=== PATIENT | male | born 1960 | race Caucasian/White ===

== ENCOUNTER 2016-08-31 17:40 | Inpatient (IN) | payer OTHER ==
[~2016-08-31] VITALS: Ht 180.3 cm; Wt 128.0 kg
[2016-08-31 18:55] VITALS: BP 141/76
[2016-08-31] MEDS: IV NORMAL SALINE 1000ML BAG 1,000 ML IV SCH (22:02)
[2016-08-31] MEDS: MORPHINE SULFATE 2 MG/ML DISP.SYRIN. IV PRN (22:03)
[2016-08-31] MEDS ORDERED: ATOR20TA58 PO (22:24)
[2016-08-31] MEDS ORDERED: WARF4TAB68 PO (22:24)
[2016-08-31] MEDS ORDERED: FENO160T PO (22:24)
[2016-08-31] MEDS ORDERED: TAMS0.4C97 PO (22:24)
[2016-08-31] MEDS ORDERED: VORT20TA PO (22:24)
[2016-08-31] MEDS ORDERED: PROP40TA PO (22:24)
[2016-08-31 23:01] VITALS: BP 106/68
[2016-08-31] MEDS: ATORVASTATIN CALCIUM 20 MG TABLET PO SCH (23:11)
[2016-08-31] MEDS: KETOROLAC TROMETHAMINE 30 MG/ML INJ. IV PRN (23:12)
[2016-08-31] MEDS: fentaNYL PF VIAL 100 MCG/2 ML VIAL IV PRN (23:12)
[2016-09-01 02:51] VITALS: BP 113/69
[2016-09-01] MEDS: KETOROLAC TROMETHAMINE 30 MG/ML INJ. IV PRN ×3 (05:21→17:48)
[2016-09-01] MEDS: fentaNYL PF VIAL 100 MCG/2 ML VIAL IV PRN ×4 (05:22→21:52)
[2016-09-01 07:00] VITALS: BP 137/86
[2016-09-01 08:05] LABS: INR 1.8 (0.8-1.1); PROTHROMBIN TIME PATIENT 20.1 SEC (11.7-14.0)
[2016-09-01] MEDS: NON FORMULARY ITEM (Vortioxetine Hydrobromide (Trintellix) 20 MG) PO SCH (09:00)
[2016-09-01 11:00] VITALS: BP 133/75
--- NOTE | 2016-09-01 11:08 | HP ---
ADMIT DATE: 09/01/2016 CHIEF COMPLAINT: Left flank pain. HISTORY OF PRESENT ILLNESS: The patient is a 56-year-old gentleman with longstanding history of recurrent kidney stones who presented with left flank pain. On CT that had been obtained when he visited the Emergency Room at [facility] 3 days ago, a stone was noted. It was thought that he may be able to pass that himself and was given pain medications for home. However, following day, yesterday, pain recurred fairly severely, and he re-presented to [facility] ER and was promptly transferred to [facility] to see his urologist, Dr. Rod. He relates that he has had kidney stones since age 29, typically on the right, although he had a procedure done at in 2008 to relieve the stenosis on his right side. Since then, he has had two stones on the left only. Of note, the patient has a personal as well as extensive family history of DVTs/PE and is on chronic Coumadin. PAST MEDICAL HISTORY: Renal stones as above, PE in 2005 and 2012, on Coumadin; and hyperlipidemia. FAMILY HISTORY: No kidney stones known. Multiple family members including siblings and father with DVT and PE. SOCIAL HISTORY: No toxic habits. ALLERGIES: CODEINE. MEDICATIONS: MAR reconciled with home medications. REVIEW OF SYSTEMS: Positive for left flank pain, currently well controlled with medications. Rest of organ system review is negative. PHYSICAL EXAMINATION: VITAL SIGNS: From today show a blood pressure of 137/86, heart rate of 76, and respiratory rate at 20. He is afebrile. GENERAL: This is a morbidly obese gentleman, alert and oriented, in no acute distress. HEENT: Shows no scleral icterus. NECK: Supple and thick. LUNGS: Clear to auscultation bilaterally. HEART: Regular rate and rhythm. ABDOMEN: Has positive bowel sounds, tenderness to palpation in the left upper quadrant and left flank. EXTREMITIES: Show no edema, no clubbing, no cyanosis. SKIN: Warm, soft, and dry without any rash. LABORATORY DATA: From [facility] were reviewed. ASSESSMENT AND PLAN: The patient is a 56-year-old gentleman with longstanding history of renal stones, now presenting with left flank pain and radiographically demonstrated a kidney stone. This has not passed despite treatment and pain medication over the past 48 hours. Urology has been consulted. Dr. Rod is his regular urologist. Anticipate a cystoscopy with potential stent placement. The patient does have a history of DVT, PE, and is on permanent anticoagulation. His INR currently is 1.8. This may have to be reversed with FFP if the procedure is planned for today. Otherwise, we will hold Coumadin for the time being. Pain control is adequate at this time. Continue with IV fentanyl and ketorolac. The patient relates that he has a diagnosis of "prediabetes." He had an appointment with his primary care physician, Dr. Puente, today. We will leave further workup to Dr. Puente. JULIEN CLARKE MD DR: TRINY/nts JOB#: [id number] / [id number] CARLI Quintana MD MTDD
[2016-09-01] MEDS: IV NORMAL SALINE 1000ML BAG 1,000 ML IV SCH ×2 (11:16→21:40)
[2016-09-01] MEDS: FENOFIBRATE,MICRONIZED 134 MG CAPSULE PO SCH (12:52)
[2016-09-01] MEDS: TAMSULOSIN 0.4 MG CAP.ER.24H. PO SCH (12:52)
[2016-09-01] MEDS: PROPRANOLOL ER 60 MG CAP.SA.24H. PO SCH (12:53)
[2016-09-01] MEDS: MORPHINE SULFATE 2 MG/ML DISP.SYRIN. IV PRN (14:21)
[2016-09-01 15:00] VITALS: BP 136/80
[2016-09-01] MEDS ORDERED: WARFARIN 4 MG TABLET. PO SCH (16:00)
--- NOTE | 2016-09-01 17:41 | ACF ---
Admission Forms Criteria RENAL COLIC AND KIDNEY STONES Clinical Indications for Admission to Inpatient Care ( Place 'X' for any and all applicable criteria): Admission is indicated for ANY ONE of the following (1)(2)(3)(4): [X ]I. Inpatient admission required rather than observation care (Also use Renal Colic and Kidney Stones: Observation Care Criteria as appropriate) because of ANY ONE of the following: [X ]a) Severe pain requiring acute inpatient management [ ]b) Urinary tract infection identified [ ]c) Vomiting that is severe or persistent [ ]d) IV fluid required rather than oral rehydration to replace significant ongoing (eg, for greater than 24 hours) losses (greater than 200 mL/hr or 3 L/m2 per day) [ ]e) Percutaneous or open drainage (eg, abscess, biliary tract) procedures [ ]f) Other condition, treatment or monitoring requiring inpatient admission [ ]II. Impending acute renal failure [ ]III. Bilateral obstruction [ ]IV. Single kidney with obstruction [ ]V. Transplanted kidney with obstruction [ ]. Possible open surgical procedure needed (eg, pyonephrosis, stone removal not amendable to other means) [ ]VII. Hemodynamic instability Extended stay beyond goal length of stay may be needed for(2)(3)(31): [ ]a) Failed initial stone removal (32) [ ]b) Pyonephrosis [ ]c) Obstructive uropathy with urinary tract infection [ ]d) Procedure complications [ ]e) Comorbidities (22) The original [facility] content created by [employer] has been revised. The portions of the content which have been revised are identified through the use of italic text or in bold, and [facility] has neither reviewed nor approved the modified material. All other unmodified content is copyright [facility]. Please see references footnoted in the original [facility] edition 2016 Admission Criteria Met?: Yes RONAK GOMEZ Sep 01, 2016 17:41
[2016-09-01 19:26] VITALS: BP 140/71
[2016-09-01] MEDS: ATORVASTATIN CALCIUM 20 MG TABLET PO SCH (20:57)
[2016-09-01 23:12] VITALS: BP 119/72
[2016-09-02] VITALS (12 sets, daily range): BP systolic 130–181; BP diastolic 74–103
--- NOTE | 2016-09-02 02:44 | CONS ---
DATE OF CONSULTATION: CHIEF COMPLAINT: Left flank pain, distal left ureteral calculus (5 mm). HISTORY OF PRESENT ILLNESS: A 56-year-old male with a history of recurrent kidney stones. He evidently started to have flank pain earlier in the week. He presented to [facility]. He was sent home with pain medications and see if he can pass the stone spontaneously. His pain recurred. He presented to [facility] and [facility]. The patient has had multiple kidney stones in the past. PAST MEDICAL HISTORY: Significant for kidney stones, pulmonary embolus in 2005 and 2012. He is on chronic anticoagulation with Coumadin. He also has a history of hyperlipidemia. SOCIAL HISTORY: Unremarkable. He denies smoking or alcohol use. ALLERGIES: HE STATES HE IS ALLERGIC TO CODEINE. MEDICATIONS: Refer to chart. REVIEW OF SYSTEMS: A 14-point review of systems performed, most significant as in HPI. PHYSICAL EXAMINATION: GENERAL DESCRIPTION: A 56-year-old male, moderately obese, resting comfortably with the benefit of IV hydration and analgesia. ABDOMEN: Soft, nontender. Negative for guarding or rigidity. No rebound tenderness. He has some mild left flank discomfort to palpation, right flank was normal. GENITOURINARY: No suprapubic tenderness. RECTAL: Not performed. MUSCULOSKELETAL: Negative for cyanosis or edema. LABORATORY DATA: The patient's PT is 20.1. His INR is 1.8. X-RAY STUDIES: Noncontrast CT scan performed at [facility] revealed a 5-mm calculus in the left ureter, 3-4 cm above the left ureterovesical junction. IMPRESSION: 1. Left flank pain. 2. A 5-mm distal left ureteral calculus. 3. History of pulmonary embolus. 4. Chronically anticoagulated. PLAN: I discussed the situation with the patient and also the hospitalist. We are going to check his PT and INR tomorrow and is still elevated. We will reverse his anticoagulation and schedule him for later in the afternoon for ureteroscopy, holmium laser lithotripsy, stone extraction, has explained to the patient, he appears to understand and is agreeable. RISHABH CLEANING DO DR: BRIAN/dev JOB#: [id number] / [id number]
[2016-09-02] MEDS ORDERED: IOHEXOL 300 MG/ML 50 ML VIAL. ONE (07:15)
[2016-09-02] MEDS: KETOROLAC TROMETHAMINE 30 MG/ML INJ. IV PRN (07:49)
--- NOTE | 2016-09-02 08:37 | RAD ---
Indication left ureteral calculus. Supine films of the abdomen were obtained. No prior imaging is available. The lung bases are clear. The abdominal gas pattern is normal. There are left renal calculi. There is a 3 to 4 mm density over the left sacrum which could represent a calculus in the distal ureter. Clinical correlation and correlation with any previous imaging studies advised. IMPRESSION: Left renal calculi. Density over the left sacrum may represent a calculus in the distal left ureter
[2016-09-02] MEDS: IV NORMAL SALINE 1000ML BAG 1,000 ML IV SCH ×2 (08:46→16:03)
[2016-09-02] MEDS: FENOFIBRATE,MICRONIZED 134 MG CAPSULE PO SCH (08:47)
[2016-09-02] MEDS: NON FORMULARY ITEM (Vortioxetine Hydrobromide (Trintellix) 20 MG) PO SCH (08:47)
[2016-09-02] MEDS: PROPRANOLOL ER 60 MG CAP.SA.24H. PO SCH (08:47)
[2016-09-02] MEDS: TAMSULOSIN 0.4 MG CAP.ER.24H. PO SCH (08:47)
[2016-09-02 09:25] LABS: INR 1.5 (0.8-1.1); PROTHROMBIN TIME PATIENT 17.2 SEC (11.7-14.0)
[2016-09-02] MEDS: fentaNYL PF VIAL 100 MCG/2 ML VIAL IV PRN (09:26)
--- NOTE | 2016-09-02 10:24 | PDOC ---
PROGRESS NOTES Chief Complaint Chief Complaint L urolithiasis ASSESSMENT AND PLAN: 1. L renal stone: planned cysto today 2. OAC: chronic warferin for DVT/PE, on hold for past 2 days. INR 1.5 today , adequate for intervention 3. DVT/PE: restart warferin post procedure, goal INR2-3. bridge with lovenox (pt knows regimen, can self administer) 4. Pain control: adequate on current toradol, fentanyl PRN 5. Dispo: anticipate D/C later today unless unexpected findings with procedure ) Vitals Vitals Vital Signs Date Time Temp Pulse Resp B/P (MAP) Pulse Ox O2 Delivery O2 Flow Rate FiO2 09/02/16 09:26 Room Air 09/02/16 08:47 72 133/74 09/02/16 07:00 97.9 22 96 97.9 Physical Exam General: Alert, Oriented X3, Cooperative Heart: Regular rate Lungs: Clear Abdomen: Normal bowel sounds, Other (LUQ pain/flank pain) Extremities: No edema Skin: No rashes Labs LABS Laboratory Tests Test 09/02/16 09:05 Prothrombin Time 17.2 SEC (11.7-14.0) Prothromb Time International Ratio 1.5 (0.8-1.1) JULIEN CLARKE MD Sep 02, 2016 10:24
[2016-09-02] MEDS ORDERED: OXYC-323 PO (10:32)
[2016-09-02] MEDS ORDERED: CEFTRIAXONE 1 GM IV ONE (12:00)
[2016-09-02] MEDS ORDERED: [UNRECOGNIZED DRUG - OTHER] IV ONE (12:00)
[2016-09-02] MEDS ORDERED: fentaNYL PF VIAL 100 MCG/2 ML VIAL ONE (12:38)
[2016-09-02] MEDS ORDERED: LIDOCAINE 2% PF Vial for OR 5 ML VIAL. ONE (12:39)
[2016-09-02] MEDS ORDERED: MIDAZOLAM HCL/PF 2 MG/2 ML VIAL. ONE (12:41)
[2016-09-02] MEDS ORDERED: ONDANSETRON PF 4 MG/2 ML VIAL. ONE (12:44)
[2016-09-02] MEDS ORDERED: PROPOFOL 20 ML IV ONE (12:44)
[2016-09-02] MEDS ORDERED: DEXAMETHASONE SOD PHOS 20 MG/5 ML VIAL. ONE (12:45)
[2016-09-02] MEDS ORDERED: FUROSEMIDE 40 MG/4 ML VIAL. ONE (13:30)
--- NOTE | 2016-09-02 14:17 | PDOC ---
BRIEF OPERATIVE NOTE Date: Sep 02, 2016 Pre-Op Diagnosis left ureteral calculus Post-Op Diagnosis Impacted left ureteral calculus Procedure Performed Cystoscopy left retrograde pyelogram, rigid ureteroscopy, holmium laser lithotripsy ureteral stent placement (4.8fr by 26cm) Surgeon Viola Anesthesia Type: General Specimens Obtained none Findings impacted left ureteral calculus which was fragmented with Holmium laser Complications None Additional Remarks Tolerated well RISHABH CLEANING DO Sep 02, 2016 14:17
[2016-09-02] MEDS ORDERED: IV RINGERS,LACTATED 1000ML 1,000 ML IV SCH (14:19)
[2016-09-02] MEDS ORDERED: fentaNYL PF VIAL 100 MCG/2 ML VIAL IV PRN ×2 (14:30)
[2016-09-02] MEDS ORDERED: LIDOCAINE 1% 1 ML SYRINGE. ID PRN (14:30)
[2016-09-02] MEDS ORDERED: MORPHINE SULFATE 2 MG/ML DISP.SYRIN. IV PRN (14:30)
[2016-09-02] MEDS ORDERED: HYDROmorphone 2 MG/ML VIAL IV PRN (14:30)
[2016-09-02] MEDS ORDERED: PROCHLORPERAZINE 10 MG/2 ML VIAL. IV PRN (14:30)
[2016-09-02] MEDS ORDERED: ONDANSETRON PF 4 MG/2 ML VIAL. IV PRN (14:30)
[2016-09-02] MEDS: ATORVASTATIN CALCIUM 20 MG TABLET PO SCH (20:49)
[2016-09-03 03:00] VITALS: BP 131/73
[2016-09-03] MEDS: IV NORMAL SALINE 1000ML BAG 1,000 ML IV SCH (05:19)
[2016-09-03 07:00] VITALS: BP 145/86
[2016-09-03] MEDS: TAMSULOSIN 0.4 MG CAP.ER.24H. PO SCH (08:41)
[2016-09-03] MEDS: FENOFIBRATE,MICRONIZED 134 MG CAPSULE PO SCH (08:41)
[2016-09-03] MEDS: PROPRANOLOL ER 60 MG CAP.SA.24H. PO SCH (08:42)
[2016-09-03] MEDS: NON FORMULARY ITEM (Vortioxetine Hydrobromide (Trintellix) 20 MG) PO SCH (08:43)
[2016-09-03] MEDS ORDERED: ENOX40DI SQ (10:26)
--- NOTE | 2016-09-03 10:38 | OP ---
DATE OF SURGERY: 09/02/2016 PREOPERATIVE DIAGNOSIS: Left flank pain, left ureteral calculus. POSTOPERATIVE DIAGNOSIS: Impacted left ureteral calculus. PROCEDURE: Cystoscopy, left retrograde pyelogram, rigid ureteroscopy with holmium laser lithotripsy, placement of indwelling left ureteral stent (4.8 Palestinian x 26 cm). SURGEON: Rishabh Cleaning DO. ANESTHESIA: General. INDICATIONS AND JUDGMENT: This is a 56-year-old male with a history of kidney stones. He is admitted to the hospital with acute left flank pain. He evidently had been experiencing flank pain for over a week. He was on medical expulsive therapy, which did not work and therefore, he was admitted to the [facility]. The CT scan had revealed what appeared to be a 5 mm calculus in the left ureter at about 5 cm above the left ureterovesical junction. IV hydration and analgesia as well as Flomax, the patient did not pass the stone spontaneously; therefore, it was felt that he should undergo ureteroscopy, holmium laser lithotripsy. The procedure was explained to the patient. He appeared to understand and was agreeable. DESCRIPTION OF PROCEDURE: The patient was preloaded with IV antibiotics. He was then taken to the operating room and placed on the operating room table in supine position, given a general anesthetic and then placed in a dorsolithotomy position using Bc stirrups since we do not have a cystoscopy table. A C-arm was moved into position. Rigid cystoscopy was performed. The urethra was normal in course and caliber. The prostate was unremarkable. Scope was advanced into the bladder. The bladder was examined. There were no calculi within the bladder. I then cannulated the left ureteral orifice with an 8-Palestinian cone tip ureteral catheter. Contrast was given and the patient was found to have high-grade obstruction at the level of the stone and no contrast was able to pass the stone. I then attempted to pass a 0.035 Glidewire to pass the stone and this was not successful. I also attempted a curved Glidewire and once again I could not get anything pass the stone, it was completely impacted. I then balloon dilated the distal left ureter. I then advanced a Sanchez rigid ureteroscope to the level of the stone. I then used a holmium laser fiber and placed it on the stone and was able to fragment it in 2 or 3 pieces. These pieces then immediately migrated up into the more proximal ureter. I also saw there was a small false channel at the 6 o'clock position from the laser. Therefore, I decided not to change the stone fragments and rather it placed indwelling left ureteral stent. A 4.8-Palestinian x 26-cm double-J ureteral stent was placed over the Glidewire up into the left renal pelvis. Positioning appeared to be satisfactory; therefore, the instruments removed leaving the stent in place. The patient was sent to recovery room in satisfactory condition. Plans will be to send the patient home with the stent ____ the swelling or edema resolved ____ ureter. I think when we remove his left ureteral stent then small stone fragments should pass spontaneously. RISHABH CLEANING DO DR: BRIAN/dev JOB#: [id number] / [id number]
[2016-09-03 11:00] VITALS: BP 146/95
--- NOTE | 2016-09-04 01:08 | DS ---
DATE OF DISCHARGE: 09/03/2016 DISCHARGE DIAGNOSES: 1. Cystoscopy, left retrograde pyelogram with rigid ureteroscopy with laser lithotripsy and ureteral stent placement. 2. Oral anticoagulation on chronic warfarin for deep vein thrombosis, pulmonary embolism. He was on hold for 2 days. His INR is 1.5. Received FFP during hospitalization, currently not therapeutic. 3. History of deep venous thrombosis and pulmonary embolism, currently on Lovenox. 4. Pain control. BRIEF HOSPITAL COURSE: A 56-year-old male patient admitted to the hospital for left flank pain. He has a prior history of longstanding renal stones. He was evaluated by Dr. Rod and during the hospitalization he had a cystoscopy with ureteral stent placement and lithotripsy. Post-procedure, the patient's symptoms improved and currently he is symptoms free. During hospitalization, he received FFP 2 units because his INR is not amenable for procedure. The patient was on oral anticoagulation with warfarin for DVT and PE. Post procedure, the patient was placed on Lovenox and recommended to continue both Lovenox and warfarin for next [address] Puente on Monday, so that he can check INR and adjust the doses of Coumadin and Lovenox as per the INR levels. The patient has been given clear instructions how to take Lovenox and warfarin and bridging modalities and when to stop. He and his verbalized understanding of the instructions. DISCHARGE EXAMINATION: GENERAL: Alert, oriented x 3. HEART: S1, S2 present. CHEST: Anterior chest clear. ABDOMEN: Soft, nontender, no organomegaly. EXTREMITIES: No edema. DISCHARGE DISPOSITION: Home. DISCHARGE FOLLOWUP: With Dr. Puente on Monday. I did personally call Dr. Puente and notified about the patient's discharge planning and current management plans. He agreed to see him on Monday. The patient needs to call him on Monday. Total time spent is 45 minutes for patient education, counseling, and coordination of care. ANGELO MARROQUIN MD DR: PARVEEN/dev JOB#: [id number] / [id number] MENA
== END 2016-09-03 11:10 | disposition home or self-care (01) | DRG 694 ==
LOC: 4 NORTH 19:25
PROVIDERS: ADMIT Internal Medicine; ATTEND Internal Medicine
PROC: 30233K1 Transfusion of Nonautologous Frozen Plasma into Peripheral Vein, Percutaneous Approach (ICD-10-PCS; 2016-09-02)
PROC: BT1F1ZZ Fluoroscopy of Left Kidney, Ureter and Bladder using Low Osmolar Contrast (ICD-10-PCS; 2016-09-02)
PROC: 0T778DZ Dilation of Left Ureter with Intraluminal Device, Via Natural or Artificial Opening Endoscopic (ICD-10-PCS; 2016-09-02)
PROC: 0TF68ZZ Fragmentation in Right Ureter, Via Natural or Artificial Opening Endoscopic (ICD-10-PCS; 2016-09-02)
PROC: 30233L1 Transfusion of Nonautologous Fresh Plasma into Peripheral Vein, Percutaneous Approach (ICD-10-PCS; principal; 2016-09-02 12:30)
DX: N20.2 Calculus of kidney with calculus of ureter (principal); E66.01 Morbid (severe) obesity due to excess calories; E78.5 Hyperlipidemia, unspecified; Z79.01 Long term (current) use of anticoagulants; Z86.711 Personal history of pulmonary embolism; Z86.718 Personal history of other venous thrombosis and embolism; Z87.442 Personal history of urinary calculi; Z88.5 Allergy status to narcotic agent; Z68.39 Body mass index [BMI] 39.0-39.9, adult
CPT/HCPCS: 36415; 74000; 74420; 85610; 86850; 86900; 86901; 86927; C1726; C1769; C2617; J0690; J1100; J1650; J1885; J1940; J2250; J2270; J2405; J2704; J3010; J7030; P9017; Q9967

== ENCOUNTER → 2016-09-23 | Outpatient (CLI) | payer OTHER ==
[2016-09-03 11:00] VITALS: BP 146/95
[~2016-09-23] MED LIST: ATOR20TA58 PO; ENOX40DI SQ; FENO160T PO; OXYC-323 PO; PROP40TA PO; TAMS0.4C97 PO; VORT20TA PO; WARF4TAB68 PO
--- NOTE | 2016-09-23 17:26 | KCIC ---
MRI of the chest without contrast 09/23/2016 CLINICAL HISTORY: Right anterior rib pain with tenderness TECHNIQUE: Unenhanced T1-weighted and fat-saturated T2-weighted sagittal, axial and coronal images of the chest with attention to the anterior chest was obtained. FINDINGS: Areas of increased signal intensity are seen in the retroareolar region of both breasts, right greater than left on the T2-weighted images consistent with gynecomastia. No area of abnormal signal intensity is seen involving the visualized ribs. No mass lesion is noted. The heart is borderline enlarged. The thoracic aorta tapers normally. Degenerative changes are seen involving the lower thoracic spine. IMPRESSION: 1. Areas of gynecomastia are seen, right greater than left. 2. No rib lesion is seen. Electronically signed by: Real Wetzel MD (09/23/2016 5:23 PM)
== END | disposition home or self-care (01) ==
LOC: KCIC MRI 15:46
PROVIDERS: ATTEND Family Medicine
DX: C41.3 Malignant neoplasm of ribs, sternum and clavicle (principal)
CPT/HCPCS: 71550

== ENCOUNTER 2017-02-03 10:29 | Outpatient (CLI) | payer OTHER ==
[2017-02-03 11:28] LABS: CREATININE 0.8 mg/dL (0.7-1.3); GFR 99.3
[2017-02-03] MEDS ORDERED: PROPOFOL 100 ML IV ONE (11:28)
[2017-02-03] MEDS ORDERED: LIDOCAINE 2% PF Vial for OR 5 ML VIAL. ONE (11:28)
[2017-02-03] MEDS ORDERED: GADOBUTROL 10 MMOL/10 ML VIAL IV ONE (12:30)
[2017-02-03 13:11] VITALS: BP 113/74
--- NOTE | 2017-02-03 13:23 | RAD ---
EXAM: Brain and pituitary MRI with and without contrast. HISTORY: Hyperprolactinemia. Headaches. TECHNIQUE: Multiplanar, multisequence magnetic resonance imaging of the brain and pituitary was performed prior to and following the administration of 10 cc Gadavist intravenous contrast. COMPARISON: None. FINDINGS: There is no restricted diffusion to suggest acute or subacute infarction. There is no susceptibility effect to suggest hemorrhage. There is no mass effect or midline shift. There is no hydrocephalus. There are few foci of signal change within the cerebral white matter, difficult to assess given motion artifact during image acquisition. These are likely due to chronic small vessel disease or chronic migraine headaches. No suspicious enhancing lesion is seen. The orbits are unremarkable. There is paranasal sinus because of thickening with multiple small mucous retention cysts. The mastoid air cells are clear. There are normal flow voids within the cerebral vessels. The pituitary and sella are normal in size. The infundibulum is normal in caliber and midline. There is suggestion of a 3 x 2 mm hypoenhancing lesion within the right aspect of the pituitary on early dynamic post contrast pituitary protocol images. This is not seen on later dynamic images. However, the exam is limited due to motion. IMPRESSION: 1. No acute intracranial finding. 2. Few foci of signal change within the cerebral white matter, a nonspecific finding. Given the degree of motion during image acquisition, the differential includes artifact, chronic small vessel disease as well as chronic migraine headaches. 3. Suggestion of a 3 x 2 mm hypoenhancing lesion within the right aspect of the pituitary gland on early dynamic axial pituitary protocol images. This is difficult to confirm given the degree of patient motion during image acquisition. The absence of a correlate on sagittal images favors artifact rather than a microadenoma. However, the possibility of a microadenoma cannot be excluded on this exam. Electronically signed by: Angie Remy MD (02/03/2017 1:20 PM) [id number]
[2017-02-03] MEDS ORDERED: IV RINGERS,LACTATED 1000ML 1,000 ML IV SCH (15:45)
== END 2017-02-03 13:32 | disposition home or self-care (01) ==
LOC: MRI 10:29
PROVIDERS: ATTEND Internal Medicine Endocrinology, Diabetes & Metabolism
DX: E22.1 Hyperprolactinemia (principal); R51 Headache
CPT/HCPCS: 36415; 70553; 82565; A9585; J2704; J7120; J2001

== ENCOUNTER → 2018-03-22 | Outpatient (CLI) | payer OTHER ==
[~2018-03-22] MED LIST changes: -OXYC-323 PO; +OXYC1TAB15 PO
--- NOTE | 2018-03-22 10:04 | KCIC ---
MR of the left foot HISTORY: Left medial foot pain, bruising and discoloration 4 x 2 weeks. No known injury. No open wound. TECHNIQUE: Routine multiplanar sequences are obtained. FINDINGS: Scan is centered at the midfoot. Mild generalized subcutaneous edema. No evidence of an organized fluid collection. The visualized tendons appear intact. No significant tendon sheath fluid. No acute sesamoiditis. Lisfranc ligament complex is intact. Tarsometatarsal joint alignment is intact. Mild degenerative changes are seen about the visualized foot. No significant joint effusion. Tarsal sinus is intact. Subtalar joints appear patent. Mild thickening of the plantar aponeurosis, with subjacent calcaneal enthesophyte, but no acute edema. IMPRESSION: 1. Mild generalized soft tissue edema. 2. Primary osteoarthritis. 3. Mild chronic plantar fasciitis. Electronically signed by: Michael Key MD (03/22/2018 10:00 AM) [id number]
== END | disposition home or self-care (01) ==
LOC: KCIC MRI 07:33
PROVIDERS: ATTEND Physician Assistant
DX: M19.072 Primary osteoarthritis, left ankle and foot (principal); M72.2 Plantar fascial fibromatosis; R60.0 Localized edema
CPT/HCPCS: 73718

== ENCOUNTER 2019-12-12 20:26 | Inpatient (IN) | payer OTHER ==
[~2019-12-12] VITALS: Ht 180.3 cm; Wt 110.7 kg
[2019-12-12] VITALS (9 sets, daily range): BP systolic 112–151; BP diastolic 63–76
[2019-12-12] MEDS ORDERED: LACTULOSE 20 GM/30 ML SOLUTION. PO PRN (21:00)
[2019-12-12] MEDS ORDERED: BISACODYL 10 MG SUPP.RECT. PR PRN (21:00)
[2019-12-12] MEDS ORDERED: DILTIAZEM HCL 125 MG in IV NORMAL SALINE 100ML 100 ML IV PRN (21:00)
[2019-12-12] MEDS ORDERED: TEMAZEPAM 7.5 MG CAPSULE PO PRN (21:15)
[2019-12-12] MEDS: ATORVASTATIN CALCIUM 20 MG TABLET PO SCH (21:46)
[2019-12-12] MEDS: DOCUSATE SODIUM 100 MG CAPSULE. PO SCH (21:48)
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
[2019-12-13] VITALS (15 sets, daily range): BP systolic 134–170; BP diastolic 68–91
[2019-12-13] MEDS: ONDANSETRON PF 4 MG/2 ML VIAL. IVP PRN ×3 (01:35→23:47)
[2019-12-13 05:44] LABS: ALBUMIN 3.3 g/dL (3.4-5.0); ALBUMIN/GLOBULIN RATIO 0.9 (1.0-1.7); CALCIUM 8.3 mg/dL (8.5-10.1); CREATININE 0.8 mg/dL (0.7-1.3); GFR 98.6; POTASSIUM 3.5 mmol/L (3.5-5.1); TOTAL BILIRUBIN 0.8 mg/dL (0.2-1.0)
[2019-12-13 05:46] LABS: PROTHROMBIN TIME PATIENT 14.5 SEC (11.7-14.0)
[2019-12-13 05:50] LABS: BASO % 0 % (0-3); EOS % 0 % (0-3); HEMATOCRIT 45.8 % (39.0-53.0); HEMOGLOBIN 15.2 g/dL (13.0-17.5); LYMPH # 1.6 x10^3/uL (1.0-4.8); LYMPH % 12 % (24-48); MEAN CORPUSCULAR HEMOGLOBIN 32 pg (25-35); MEAN CORPUSCULAR HGB CONC 33 g/dL (31-37); MEAN CORPUSCULAR VOLUME 96 fL (79-100); MONO # 1.1 x10^3/uL (0.0-1.1); MONO % 9 % (0-9); NEUT # 10.3 x10^3/uL (1.8-7.7); NEUT % 79 % (31-73); PLATELET COUNT 278 x10^3/uL (140-400); RED BLOOD COUNT 4.76 x10^6/uL (4.30-5.70); RED CELL DISTRIBUTION WIDTH 14.1 % (11.5-14.5)
--- NOTE | 2019-12-13 07:28 | PDOC1 ---
History and Physical Date of Admission Date of Admission DATE: 12/13/19 TIME: 07:27 Identification/Chief Complaint Chief Complaint Suicide attempt Source Source: Chart review, Patient History of Present Illness History of Present Illness Mr Duncan is a 59 yo M w/ PMHx DVTs x2, HTN, DM2, nephrolithiasis who presents to the emergency room at [facility] after an overdose. Patient states that last night he took an unknown amount of Tylenol around 8 PM on 12/11/2019. he states that it was extra strength Tylenol. He admits that this was a suicide attempt. He had an argument with his prior to this happening and states that this was what caused him to try to kill himself. He notes a history of addiction to online pornography and his encountered him on the computer watching this. Patient is very depressed and stating that he does not deserve help. He has abdominal pain, nausea, depression. He was tachycardic and tachypneic. Work-up was significant for negative Tylenol level. If patient is being truthful about when he took the Tylenol it is likely that he does not have toxicity. He was given nac prior to results coming back due to patient taking the Tylenol more than 12 hours ago and him being symptomatic. Is unclear at this time what is causing the patient's symptoms. It is possible that he ingested a different substance. He did have an episode of SVT while in the emergency room and was converted with adenosine. Patient then had 2 more episodes of SVT and required adenosine to more times. Started on Cardizem ggt and transferred to [facility] for further care. WBC 16.7. Hb 17, platelets 323, INR 1.2, VBG 7.5/. CTPA negative for PE Past Medical History Past Medical History DVT Cardiovascular: HTN CENTRAL NERVOUS SYSTEM: Migraine Endocrine: Diabetes Past Surgical History Past Surgical History Arthroscopy (foot surgery), Hernia Repair (ventral), Tonsillectomy, Other (cystoscopy) Past Surgical History: Cystoscopy, Hernia Repair, Tonsillectomy Family History Family History: Hypertension, Other (DVTS) Social History Smoke: No ALCOHOL: none Drugs: None Current Medications Current Medications Current Medications Atorvastatin Calcium (Lipitor) 20 mg HS PO Last administered on 12/12/19at 21:46; Start 12/12/19 at 21:00 Tamsulosin HCl (Flomax) 0.4 mg DAILY PO ; Start 12/13/19 at 09:00 Warfarin Sodium (Coumadin) 4 mg DAILY16 PO ; Start 12/13/19 at 16:00 Ondansetron HCl (Zofran) 4 mg PRN Q6HRS PRN IVP NAUSEA/VOMITING Last administered on 12/13/19at 01:35; Start 12/12/19 at 21:00 Docusate Sodium (Colace) 100 mg BID PO Last administered on 12/12/19at 21:48; Start 12/12/19 at 21:00 Lactulose (Lactulose) 20 gm PRN Q12HR PRN PO CONSTIPATION; Start 12/12/19 at 21:00 Bisacodyl (Dulcolax Supp) 10 mg PRN DAILY PRN [place] CONSTIPATION; Start 12/12/19 at 21:00 Diltiazem HCl 125 mg/Sodium Chloride 125 ml @ 5 mls/hr CONT PRN IV SEE I/O RECORD Last administered on 12/13/19at 00:22; Start 12/12/19 at 21:00 Temazepam (Restoril) 7.5 mg PRN QHS PRN PO INSOMNIA; Start 12/12/19 at 21:15 Olanzapine (ZyPREXA ZYDIS) 5 mg PRN BID PRN PO agitation, anxiety; Start 12/12/19 at 21:15 Warfarin Sodium (Coumadin Per Physician) 1 each PRN DAILY PRN MC SEE COMMENTS; Start 12/13/19 at 16:00 Active Scripts Active Lovenox (Enoxaparin Sodium) 40 Mg/0.4 Ml Disp.syrin 120 Mg SQ BID 5 Days Percocet 5-325 Mg Tablet (Oxycodone/Acetaminophen) 1 Each Tablet 1 Tab PO QID Reported Coumadin (Warfarin Sodium) 4 Mg Tablet 1 Tab PO DAILY Trintellix (Vortioxetine) 20 Mg Tablet 20 Mg PO DAILY Flomax (Tamsulosin Hcl) 0.4 Mg Cap.er.24h 1 Cap PO DAILY Propranolol Hcl 40 Mg Tablet 3 Tab PO DAILY Fenofibrate 160 Mg Tablet 1 Tab PO QHS Atorvastatin Calcium 20 Mg Tablet 20 Mg PO HS Allergies Allergies: Coded Allergies: codeine (Verified Allergy, Intermediate, 09/02/16) ROS General: YES: Fatigue, Malaise; No: Chills, Night Sweats, Appetite, Other PSYCHOLOGICAL ROS: YES: Anxiety, Depression, Irritablity, Mood Swings, Obsessive thoughts, Sleep disturbances, Suicidal ideation; No: Behavioral Disorder, Concentration difficultie, Decreased libido, Disorientation, Hallucinations, Hostility, Memory difficulties, Physical abuse, Sexual abuse, Other Eyes: No Blurry vision, No Decreased vision, No Double vision, No Dry eyes, No Excessive tearing, No Eye Pain, No Itchy Eyes, No Loss of vision, No Photophobia, No Scotomata, No Uses contacts, No Uses glasses, No Other HEENT: No: Heacaches, Visual Changes, Hearing change, Nasal congestion, Nasal discharge, Oral lesions, Sinus pain, Sore Throat, Epistaxis, Sneezing, Snoring, Tinnitus, Vertigo, Vocal changes, Other ALLERGY AND IMMUNOLOGY: No: Hives, Insect Bite Sensitivity, Itchy/Watery Eyes, Nasal Congestion, Post Nasal Drip, Seasonal Allergies, Other Hematological and Lymphatic: YES: Blood Clots; No: Bleeding Problems, Blood Transfusions, Brusing, Night Sweats, Pallor, Swollen Lymph Nodes, Other ENDOCRINE: No: Breast Changes, Galactorrhea, Hair Pattern Changes, Hot Flashes, Malaise/lethargy, Mood Swings, Palpitations, Polydipsia/polyuria, Skin Changes, Temperature Intolerance, Unexpected Weight Changes, Other Breast: No New/Changing Breast Lumps, No Nipple changes, No Nipple discharge, No Other Respiratory: No: Cough, Hemoptysis, Orthopnea, Pleuritic Pain, Shortness of breath, SOB with excertion, Sputum Changes, Stridor, Tachypnea, Wheezing, Other Cardiovascular: No Chest Pain, No Palpitations, No Orthopnea, No Paroxysmal Noc. Dyspnea, No Edema, No Lt Headedness, No Other Gastrointestinal: No Nausea, No Vomiting, No Abdominal Pain, No Diarrhea, No Constipation, No Melena, No Hematochezia, No Other Genitourinary: No Dysuria, No Frequency, No Incontinence, No Hematuria, No Retention, No Discharge, No Urgency, No Pain, No Flank Pain, No Other, No , No , No , No , No , No , No Musculoskeletal: No Gait Disturbance, No Joint Pain, No Joint Stiffness, No Joint Swelling, No Muscle Pain, No Muscular Weakness, No Pain In:, No Swelling In:, No Other Neurological: No Behavorial Changes, No Bowel/Bladder ControlChng, No Confusion, No Dizziness, No Gait Disturbance, No Headaches, No Impaired Coord/balance, No Memory Loss, No Numbness/Tingling, No Seizures, No Speech Problems, No Tremors, No Visual Changes, No Weakness, No Other Skin: No Dry Skin, No Eczema, No Hair Changes, No Lumps, No Mole Changes, No Mottling, No Nail Changes, No Pruritus, No Rash, No Skin Lesion Changes, No Other, No Acne Physical Exam General: Alert, Oriented X3, Cooperative, moderate distress HEENT: Atraumatic, PERRLA, EOMI, Mucous membr. moist/pink Lungs: Clear to auscultation, Normal air movement Heart: S1S2, RRR, no thrills, no rubs, no gallops, no murmurs Abdomen: Normal bowel sounds, Soft, No tenderness, No hepatosplenomegaly, No masses Extremities: No clubbing, No cyanosis, No edema, Normal pulses, No tenderness/swelling Skin: No rashes, No breakdown, No significant lesion Neuro: Normal gait, Normal speech, Strength at 5/5 X4 ext, Normal tone, Sensation intact, Cranial nerves 3-12 NL, Reflexes 2+ Psych/Mental Status: Other (distressed, pressured speech) Vitals Vitals Vital Signs Date Time Temp Pulse Resp B/P (MAP) Pulse Ox O2 Delivery O2 Flow Rate FiO2 12/13/19 07:02 88 16 159/73 (101) 95 Room Air 12/13/19 04:00 96.8 96.8 Labs Labs Laboratory Tests Test 12/12/19 21:48 12/13/19 05:00 Glucose (Fingerstick) 187 mg/dL (70-99) White Blood Count 13.0 x10^3/uL (4.0-11.0) Red Blood Count 4.76 x10^6/uL (4.30-5.70) Hemoglobin 15.2 g/dL (13.0-17.5) Hematocrit 45.8 % (39.0-53.0) Mean Corpuscular Volume 96 fL (79-100) Mean Corpuscular Hemoglobin 32 pg (25-35) Mean Corpuscular Hemoglobin Concent 33 g/dL (31-37) Red Cell Distribution Width 14.1 % (11.5-14.5) Platelet Count 278 x10^3/uL (140-400) Neutrophils (%) (Auto) 79 % (31-73) Lymphocytes (%) (Auto) 12 % (24-48) Monocytes (%) (Auto) 9 % (0-9) Eosinophils (%) (Auto) 0 % (0-3) Basophils (%) (Auto) 0 % (0-3) Neutrophils # (Auto) 10.3 x10^3/uL (1.8-7.7) Lymphocytes # (Auto) 1.6 x10^3/uL (1.0-4.8) Monocytes # (Auto) 1.1 x10^3/uL (0.0-1.1) Eosinophils # (Auto) 0.0 x10^3/uL (0.0-0.7) Basophils # (Auto) 0.0 x10^3/uL (0.0-0.2) Prothrombin Time 14.5 SEC (11.7-14.0) Prothromb Time International Ratio 1.2 (0.8-1.1) Sodium Level 138 mmol/L (136-145) Potassium Level 3.5 mmol/L (3.5-5.1) Chloride Level 104 mmol/L (98-107) Carbon Dioxide Level 18 mmol/L (21-32) Anion Gap 16 (6-14) Blood Urea Nitrogen 15 mg/dL (8-26) Creatinine 0.8 mg/dL (0.7-1.3) Estimated GFR (Cockcroft-Gault) 98.6 BUN/Creatinine Ratio 19 (6-20) Glucose Level 203 mg/dL (70-99) Calcium Level 8.3 mg/dL (8.5-10.1) Total Bilirubin 0.8 mg/dL (0.2-1.0) Aspartate Amino Transf (AST/SGOT) 20 U/L (15-37) Alanine Aminotransferase (ALT/SGPT) 38 U/L (16-63) Alkaline Phosphatase 51 U/L (46-116) Total Protein 7.0 g/dL (6.4-8.2) Albumin 3.3 g/dL (3.4-5.0) Albumin/Globulin Ratio 0.9 (1.0-1.7) Thyroid Stimulating Hormone (TSH) 1.337 uIU/mL (0.358-3.74) Laboratory Tests Test 12/12/19 21:48 12/13/19 05:00 Glucose (Fingerstick) 187 mg/dL (70-99) White Blood Count 13.0 x10^3/uL (4.0-11.0) Red Blood Count 4.76 x10^6/uL (4.30-5.70) Hemoglobin 15.2 g/dL (13.0-17.5) Hematocrit 45.8 % (39.0-53.0) Mean Corpuscular Volume 96 fL (79-100) Mean Corpuscular Hemoglobin 32 pg (25-35) Mean Corpuscular Hemoglobin Concent 33 g/dL (31-37) Red Cell Distribution Width 14.1 % (11.5-14.5) Platelet Count 278 x10^3/uL (140-400) Neutrophils (%) (Auto) 79 % (31-73) Lymphocytes (%) (Auto) 12 % (24-48) Monocytes (%) (Auto) 9 % (0-9) Eosinophils (%) (Auto) 0 % (0-3) Basophils (%) (Auto) 0 % (0-3) Neutrophils # (Auto) 10.3 x10^3/uL (1.8-7.7) Lymphocytes # (Auto) 1.6 x10^3/uL (1.0-4.8) Monocytes # (Auto) 1.1 x10^3/uL (0.0-1.1) Eosinophils # (Auto) 0.0 x10^3/uL (0.0-0.7) Basophils # (Auto) 0.0 x10^3/uL (0.0-0.2) Prothrombin Time 14.5 SEC (11.7-14.0) Prothromb Time International Ratio 1.2 (0.8-1.1) Sodium Level 138 mmol/L (136-145) Potassium Level 3.5 mmol/L (3.5-5.1) Chloride Level 104 mmol/L (98-107) Carbon Dioxide Level 18 mmol/L (21-32) Anion Gap 16 (6-14) Blood Urea Nitrogen 15 mg/dL (8-26) Creatinine 0.8 mg/dL (0.7-1.3) Estimated GFR (Cockcroft-Gault) 98.6 BUN/Creatinine Ratio 19 (6-20) Glucose Level 203 mg/dL (70-99) Calcium Level 8.3 mg/dL (8.5-10.1) Total Bilirubin 0.8 mg/dL (0.2-1.0) Aspartate Amino Transf (AST/SGOT) 20 U/L (15-37) Alanine Aminotransferase (ALT/SGPT) 38 U/L (16-63) Alkaline Phosphatase 51 U/L (46-116) Total Protein 7.0 g/dL (6.4-8.2) Albumin 3.3 g/dL (3.4-5.0) Albumin/Globulin Ratio 0.9 (1.0-1.7) Thyroid Stimulating Hormone (TSH) 1.337 uIU/mL (0.358-3.74) Images Images Chest CT was performed according to pulmonary arteriography protocol. Intensity projection images were provided. Sagittal and coronal reformatted images provided. Evaluation for pulmonary arterial thromboembolic disease is nondiagnostic due to suboptimal opacification of the pulmonary arterial vasculature. This appears related to transient interruption of contrast. No enlarged thoracic lymph nodes are present. Significant left anterior descending coronary arterial calcifications present. Trachea and bronchial tree arm normal. No infiltrate or effusion. No suspicious pulmonary nodule. Circumferential wall thickening duodenum is notable. Edematous appearance is noted. Liver, spleen, adrenal glands, and gallbladder fossa are normal. Right renal lower pole cyst is present. Left renal interpolar region calculus measuring 0.6 cm from. At the inferior pole, there is a 0.6 cm diameter calculus. No hydronephrosis or nephrolithiasis. Bladder 0.7 cm diameter calculus is present. No extraluminal gas. Appendix is normal. No bowel obstruction. Diverticulosis is present. Bony structures are unremarkable. Impression: Nondiagnostic for PE due to transient interruption of contrast. No infiltrate. Marked circumferential wall thickening of the duodenum with edematous appearance concerning for duodenitis. Nonobstructive left renal calculi. Urinary bladder calculus. Diverticulosis. VTE Prophylaxis Ordered VTE Prophylaxis Devices: Yes VTE Pharmacological Prophylaxi: Yes Assessment/Plan Assessment/Plan A/P: Suicide attempt - Tylenol overdose? More likely a reactive depressive episode, but he has stopped taking his medications due to this SVT (supraventricular tachycardia) - likely metabolic related vs conversion reaction with stress vs primary cardiac arrhythmia. on diltiazem and warfarin Pornography addiction - internet based pornography. He has made a plan with his to limit internet access, skilled nursing facility counselor with his PCP, and [facility]. 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 Other family members have not tolerated NOACs well. He is bridging back on lovenox due to a recent sinus surgery 10 days ago. Will bridge with lovenox Diabetes - sliding scale Diverticulosis - stable Migraines - on topomax BPH - Stable HLD - statin HTN - cont diltiazem FEN - Cardiac diet PPX - lovenox + warfarin FULL CODE Dispo - inpatient for above Justifications for Admission Other Justification JONATHAN MENSAH MD Dec 13, 2019 07:28
[2019-12-13] MEDS: TAMSULOSIN 0.4 MG CAP.ER.24H. PO SCH (08:33)
[2019-12-13] MEDS: DOCUSATE SODIUM 100 MG CAPSULE. PO SCH ×2 (08:33→20:50)
--- NOTE | 2019-12-13 09:36 | PDOC2 ---
CARDIAC CONSULT DATE OF CONSULT Date of Consult DATE: 12/13/19 TIME: 08:57 REASON FOR CONSULT Reason for Consult: SVT REFERRING PHYSICIAN Referring Physician: Imelda SOURCE Source: Chart review, Patient HISTORY OF PRESENT ILLNESS HISTORY OF PRESENT ILLNESS This is a 59 yo male admitted initially at [facility] and was noted with suicide attempt. Apparently he took per his description a handful of tylenol Monday night. He has been having abdominal pain but this was existent even prior and also with some multiple episodes of vomiting. Reports being depressed about issues with his . No complains of any chest pain or SOA or palpitations or recent passing out. Reports no hx of CADm, arrhythmias and actually had a stress test 3 yrs ago noting it as normal. Consult is for SVT and no strips are available but I noted it being checked with HR in the 200s. He was given x2 adenosise which he converts but became refractory and eventually given cardizem drip. He is mainating SR. Still has LLQ abd pain but no cardiac symptoms and BP is stable. PAST MEDICAL HISTORY Cardiovascular: HTN Pulmonary: Pulmonary embolus CENTRAL NERVOUS SYSTEM: Migraine GI: Diverticulosis Heme/Onc: Other (chronic coumadin therapy) Psych: Anxiety Musculoskeletal: Osteoarthritis Renal/: Benign prostatic enlarg., Other (nephrolithiasis) Endocrine: Diabetes PAST SURGICAL HISTORY Past Surgical History: Arthroscopy (foot surgery), Hernia Repair (ventral), Tonsillectomy, Other (cystoscopy) FAMILY HISTORY Family History: Hypertension SOCIAL HISTORY Smoke: No ALCOHOL: none Drugs: None Lives: with Family CURRENT MEDICATIONS CURRENT MEDICATIONS Current Medications Medications (Trade) Dose Ordered Sig/Tonie Route PRN Reason Start Time Stop Time Status Last Admin Dose Admin Atorvastatin Calcium (Lipitor) 20 mg HS PO 12/12/19 21:00 12/12/19 21:46 Tamsulosin HCl (Flomax) 0.4 mg DAILY PO 12/13/19 09:00 12/13/19 08:33 Ondansetron HCl (Zofran) 4 mg PRN Q6HRS PRN IVP NAUSEA/VOMITING 12/12/19 21:00 12/13/19 07:56 Docusate Sodium (Colace) 100 mg BID PO 12/12/19 21:00 12/13/19 08:33 Diltiazem HCl 125 mg/Sodium Chloride 125 ml @ 5 mls/hr CONT PRN IV SEE I/O RECORD 12/12/19 21:00 12/13/19 00:22 ALLERGIES ALLERGIES: Coded Allergies: codeine (Verified Allergy, Intermediate, 09/02/16) ROS Review of System 14 point ROS evaluated with pertinent positives noted per HPI PHYSICAL EXAM General: Alert, Oriented X3, Cooperative, No acute distress HEENT: Atraumatic, Mucous membr. moist/pink Lungs: Clear to auscultation, Normal air movement Heart: Regular rate (SR), Normal S1, Normal S2, No murmurs Abdomen: Soft, Other (obese) Extremities: No cyanosis, No edema Skin: No breakdown, No significant lesion Neuro: Normal speech, Sensation intact Psych/Mental Status: Mental status NL, Other (flat affect) MUSCULOSKELETAL: Osteoarthritic changes both hands VITALS/I&O VITALS/I&O: Vital Signs Date Time Temp Pulse Resp B/P (MAP) Pulse Ox O2 Delivery O2 Flow Rate FiO2 12/13/19 08:00 99.8 95 18 135/68 (90) 96 Room Air 99.8 I & O 12/12/19 12/12/19 12/13/19 15:00 23:00 07:00 Intake Total 300 ml 94 ml Output Total 0 ml 2 ml Balance 300 ml 92 ml LABS Lab: Laboratory Tests Test 12/12/19 21:48 12/13/19 05:00 Glucose (Fingerstick) 187 mg/dL (70-99) H White Blood Count 13.0 x10^3/uL (4.0-11.0) H Red Blood Count 4.76 x10^6/uL (4.30-5.70) Hemoglobin 15.2 g/dL (13.0-17.5) Hematocrit 45.8 % (39.0-53.0) Mean Corpuscular Volume 96 fL (79-100) Mean Corpuscular Hemoglobin 32 pg (25-35) Mean Corpuscular Hemoglobin Concent 33 g/dL (31-37) Red Cell Distribution Width 14.1 % (11.5-14.5) Platelet Count 278 x10^3/uL (140-400) Neutrophils (%) (Auto) 79 % (31-73) H Lymphocytes (%) (Auto) 12 % (24-48) L Monocytes (%) (Auto) 9 % (0-9) Eosinophils (%) (Auto) 0 % (0-3) Basophils (%) (Auto) 0 % (0-3) Neutrophils # (Auto) 10.3 x10^3/uL (1.8-7.7) H Lymphocytes # (Auto) 1.6 x10^3/uL (1.0-4.8) Monocytes # (Auto) 1.1 x10^3/uL (0.0-1.1) Eosinophils # (Auto) 0.0 x10^3/uL (0.0-0.7) Basophils # (Auto) 0.0 x10^3/uL (0.0-0.2) Prothrombin Time 14.5 SEC (11.7-14.0) H Prothrombin Time INR 1.2 (0.8-1.1) H Sodium Level 138 mmol/L (136-145) Potassium Level 3.5 mmol/L (3.5-5.1) Chloride Level 104 mmol/L (98-107) Carbon Dioxide Level 18 mmol/L (21-32) L Anion Gap 16 (6-14) H Blood Urea Nitrogen 15 mg/dL (8-26) Creatinine 0.8 mg/dL (0.7-1.3) Estimated GFR (Cockcroft-Gault) 98.6 BUN/Creatinine Ratio 19 (6-20) Glucose Level 203 mg/dL (70-99) H Calcium Level 8.3 mg/dL (8.5-10.1) L Total Bilirubin 0.8 mg/dL (0.2-1.0) Aspartate Amino Transferase (AST) 20 U/L (15-37) Alanine Aminotransferase (ALT) 38 U/L (16-63) Alkaline Phosphatase 51 U/L (46-116) Total Protein 7.0 g/dL (6.4-8.2) Albumin 3.3 g/dL (3.4-5.0) L Albumin/Globulin Ratio 0.9 (1.0-1.7) L Thyroid Stimulating Hormone (TSH) 1.337 uIU/mL (0.358-3.74) Laboratory Tests 12/13/19 05:00 Laboratory Tests 12/13/19 05:00 ASSESSMENT/PLAN ASSESSMENT/PLAN 1. Major depression with suicidal attempt: reported that he took handful of tylenol Monday 2. PSVT: likely Induced by metabolic derangement 3. DM2: per PCP 4. Anion gap metabolic acidosis with DKA and lactic acidosis 5. Hx of migraine: hence pt is on propranolol last dose Monday and also topamax 6. Abdominal pain/vomiting: with hx of diverticulosis and nephrolithiasis 7. 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 Leukocytosis Recommendations 1. Will try to obtain sample strips of rhythm from [facility]. Meantime will stay with cardizem and convert to Cardizem CD. Hold off propranolol with depression issues 2. TSH is normal. Monitor LFTs and pancreatic enzymes. Will obtain TTE 3. Consult Psych MIKE CASTELLANOS APRN Dec 13, 2019 09:36
[2019-12-13 09:56] LABS: AMYLASE 76 U/L (25-115); LIPASE 35 U/L (73-393)
--- NOTE | 2019-12-13 10:39 | NUR ---
Patient remains A&O x 4, pleasant and cooperative with cares. Denies Pain. Patient tearful this morning as he could not believe that he had tried to kill himself. Patient seems to have remorse about that. patient currently on 1:1 sitter. at bedside. No further concerns at this time. Will continue to monitor and care per plan of care.
--- NOTE | 2019-12-13 11:45 | NUR ---
SW following. Discussed with Dr. Segura - PAT referral for SI and drug overdose. Pt COVID-19 pending for possible psych placement. SW initiated PAT referral. Room air, cardiac diet. SW will continue to follow. Addendum: 12/13/19 at 1430 by WENDY PAREDES SW ALISON spoke with Hernan ([facility]), pt denies SI, HI etc. Pt feels incredibly embarrassed about the whole situation. Pt cleared to discharge home by Hernan when medically stable. PT provided resources, and will follow up with Father Nathan, his redrawer. Hernan discussed at length with Dr. Segura. Dr. Segura in agreement, per Hernan. ALISON will continue to follow.
[2019-12-13] MEDS ORDERED: DEXTROSE 50% 25 GM / 50ML DISP.SYRIN. IV PRN (15:15)
[2019-12-13] MEDS: WARFARIN 4 MG TABLET. PO SCH (16:25)
[2019-12-13] MEDS: INSULIN LISPRO 300 UNITS/3 ML VIAL. SQ SCH (17:00)
--- NOTE | 2019-12-13 19:42 | PDOC1 ---
History & Psych Evaluation Date of Service: DOS: DATE: 12/13/19 TIME: 19:42 Source: Source: Caregiver, Chart review, Patient Identification: Identification He is a 59-year-old gentleman with history of depression admitted with suicidal attempt by Tylenol overdose. Chief Complaint: Chief Complaint Depression, anxiety, Tylenol overdose History of Present Illness: HPI: He is a 59-year-old gentleman with history of Tylenol overdose admitte d with worsening depression and anxiety. He reportedly received N- acetylcysteine. Patient appears comfortable talking in presence of his . He appears depressed, embarrassed, and anxious. Reportedly, he was found by his watching porn. States, he made a mistake and remorseful on it and wanting to defend the trust of her again. States, he knows that his does not love him anymore but cares about him. States, he has his own demons likely talking about his porn addiction. Endorsing history of depression taking Prozac per patient. However medical record is consistent with Trintellix 20 mg daily. States, he has many stressors in his life that makes him depressed including past history is, work stress and trust that he breached. He does have history of anxiety which is not very pronounced. He relates his anxiety to stress as well. Denies history of suicidal or homicidal thoughts. Never had any suicidal thoughts or suicidal attempt. Denies history of auditory or visual hallucinations. No history of nilo or hypomania. No history of self-harm behavior. Tearful during interview. Past Psychiatric History: Previous history of depression and anxiety. Denies history of psychiatric hospital admissions. Denies history of suicidal ideation, suicidal attempt, or nonsuicidal self- injurious behavior. Medications: Previous Prozac, Trintellix Past Medical History: Hypertension DVT Diabetes mellitus Tonsillectomy Hernia repair Family History: Denies family history of psychiatric illness. Denies history of suicide in the family. 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 Denies history of smoking, alcohol abuse, or illicit substance use. Denies history of legal issues. He is yazdanism and go to congregational regularly. Current Medications: Current Medications Current Medications Medications (Trade) Dose Ordered Sig/Tonie Start Time Stop Time Status Last Admin Dose Admin Atorvastatin Calcium (Lipitor) 20 mg HS 12/12/19 21:00 12/12/19 21:46 20 MG Bisacodyl (Dulcolax Supp) 10 mg PRN DAILY PRN 12/12/19 21:00 Dextrose (Dextrose 50%-Water Syringe) 12.5 gm PRN Q15MIN PRN 12/13/19 15:15 Diltiazem HCl (Cardizem 24hr Cd) 180 mg DAILY 12/13/19 10:00 12/13/19 10:11 180 MG Diltiazem HCl 125 mg/Sodium Chloride 125 ml @ 5 mls/hr CONT PRN 12/12/19 21:00 12/13/19 09:36 DC 12/13/19 00:22 10 MLS/HR Docusate Sodium (Colace) 100 mg BID 12/12/19 21:00 12/13/19 08:33 100 MG Enoxaparin Sodium (Lovenox 100mg Syringe) 100 mg Q12HR 12/13/19 16:00 12/13/19 16:25 100 MG Insulin Human Lispro (HumaLOG) 0-7 UNITS TIDWMEALS 12/13/19 17:00 12/13/19 17:00 4 UNITS Lactulose (Lactulose) 20 gm PRN Q12HR PRN 12/12/19 21:00 Olanzapine (ZyPREXA ZYDIS) 5 mg PRN BID PRN 12/12/19 21:15 Ondansetron HCl (Zofran) 4 mg PRN Q6HRS PRN 12/12/19 21:00 12/13/19 07:56 4 MG Tamsulosin HCl (Flomax) 0.4 mg DAILY 12/13/19 09:00 12/13/19 08:33 0.4 MG Temazepam (Restoril) 7.5 mg PRN QHS PRN 12/12/19 21:15 Warfarin Sodium (Coumadin Per Physician) 1 each PRN DAILY PRN 12/13/19 16:00 Warfarin Sodium (Coumadin) 4 mg DAILY16 12/13/19 16:00 12/13/19 16:25 4 MG Allergies: Allergies: Coded Allergies: codeine (Verified Allergy, Intermediate, 09/02/16) Mental Status Examination: Mental Status Examination gentleman appears his stated age Cooperative and interactive Alert and oriented Thought processes linear and goal-directed Denies auditory or visual hallucinations Denies suicidal or homicidal thoughts No abnormal perceptions noted. Mood is depressed and anxious Affect is dysthymic Insight is good Judgment is fair Impulse control is fair Attention span and concentration fair Recent and remote memory intact ROS: 14 point review of system is otherwise negative except for as stated above. Physical Exam: Refer to Physician's note. 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 MSK: No EPS, TDK, or abnormal involuntary movements Vitals: Vitals Vital Signs Date Time Temp Pulse Resp B/P (MAP) Pulse Ox O2 Delivery O2 Flow Rate FiO2 12/13/19 16:00 98.4 107 28 134/88 (103) 98 Room Air 98.4 Labs: Labs Laboratory Tests Test 12/12/19 21:48 12/13/19 05:00 12/13/19 17:25 Glucose (Fingerstick) 187 mg/dL (70-99) 249 mg/dL (70-99) White Blood Count 13.0 x10^3/uL (4.0-11.0) Red Blood Count 4.76 x10^6/uL (4.30-5.70) Hemoglobin 15.2 g/dL (13.0-17.5) Hematocrit 45.8 % (39.0-53.0) Mean Corpuscular Volume 96 fL (79-100) Mean Corpuscular Hemoglobin 32 pg (25-35) Mean Corpuscular Hemoglobin Concent 33 g/dL (31-37) Red Cell Distribution Width 14.1 % (11.5-14.5) Platelet Count 278 x10^3/uL (140-400) Neutrophils (%) (Auto) 79 % (31-73) Lymphocytes (%) (Auto) 12 % (24-48) Monocytes (%) (Auto) 9 % (0-9) Eosinophils (%) (Auto) 0 % (0-3) Basophils (%) (Auto) 0 % (0-3) Neutrophils # (Auto) 10.3 x10^3/uL (1.8-7.7) Lymphocytes # (Auto) 1.6 x10^3/uL (1.0-4.8) Monocytes # (Auto) 1.1 x10^3/uL (0.0-1.1) Eosinophils # (Auto) 0.0 x10^3/uL (0.0-0.7) Basophils # (Auto) 0.0 x10^3/uL (0.0-0.2) Prothrombin Time 14.5 SEC (11.7-14.0) Prothromb Time International Ratio 1.2 (0.8-1.1) Sodium Level 138 mmol/L (136-145) Potassium Level 3.5 mmol/L (3.5-5.1) Chloride Level 104 mmol/L (98-107) Carbon Dioxide Level 18 mmol/L (21-32) Anion Gap 16 (6-14) Blood Urea Nitrogen 15 mg/dL (8-26) Creatinine 0.8 mg/dL (0.7-1.3) Estimated GFR (Cockcroft-Gault) 98.6 BUN/Creatinine Ratio 19 (6-20) Glucose Level 203 mg/dL (70-99) Calcium Level 8.3 mg/dL (8.5-10.1) Total Bilirubin 0.8 mg/dL (0.2-1.0) Aspartate Amino Transf (AST/SGOT) 20 U/L (15-37) Alanine Aminotransferase (ALT/SGPT) 38 U/L (16-63) Alkaline Phosphatase 51 U/L (46-116) Total Protein 7.0 g/dL (6.4-8.2) Albumin 3.3 g/dL (3.4-5.0) Albumin/Globulin Ratio 0.9 (1.0-1.7) Amylase Level 76 U/L (25-115) Lipase 35 U/L (73-393) Thyroid Stimulating Hormone (TSH) 1.337 uIU/mL (0.358-3.74) Laboratory Tests Test 12/12/19 21:48 12/13/19 05:00 12/13/19 17:25 Glucose (Fingerstick) 187 mg/dL (70-99) 249 mg/dL (70-99) White Blood Count 13.0 x10^3/uL (4.0-11.0) Red Blood Count 4.76 x10^6/uL (4.30-5.70) Hemoglobin 15.2 g/dL (13.0-17.5) Hematocrit 45.8 % (39.0-53.0) Mean Corpuscular Volume 96 fL (79-100) Mean Corpuscular Hemoglobin 32 pg (25-35) Mean Corpuscular Hemoglobin Concent 33 g/dL (31-37) Red Cell Distribution Width 14.1 % (11.5-14.5) Platelet Count 278 x10^3/uL (140-400) Neutrophils (%) (Auto) 79 % (31-73) Lymphocytes (%) (Auto) 12 % (24-48) Monocytes (%) (Auto) 9 % (0-9) Eosinophils (%) (Auto) 0 % (0-3) Basophils (%) (Auto) 0 % (0-3) Neutrophils # (Auto) 10.3 x10^3/uL (1.8-7.7) Lymphocytes # (Auto) 1.6 x10^3/uL (1.0-4.8) Monocytes # (Auto) 1.1 x10^3/uL (0.0-1.1) Eosinophils # (Auto) 0.0 x10^3/uL (0.0-0.7) Basophils # (Auto) 0.0 x10^3/uL (0.0-0.2) Prothrombin Time 14.5 SEC (11.7-14.0) Prothromb Time International Ratio 1.2 (0.8-1.1) Sodium Level 138 mmol/L (136-145) Potassium Level 3.5 mmol/L (3.5-5.1) Chloride Level 104 mmol/L (98-107) Carbon Dioxide Level 18 mmol/L (21-32) Anion Gap 16 (6-14) Blood Urea Nitrogen 15 mg/dL (8-26) Creatinine 0.8 mg/dL (0.7-1.3) Estimated GFR (Cockcroft-Gault) 98.6 BUN/Creatinine Ratio 19 (6-20) Glucose Level 203 mg/dL (70-99) Calcium Level 8.3 mg/dL (8.5-10.1) Total Bilirubin 0.8 mg/dL (0.2-1.0) Aspartate Amino Transf (AST/SGOT) 20 U/L (15-37) Alanine Aminotransferase (ALT/SGPT) 38 U/L (16-63) Alkaline Phosphatase 51 U/L (46-116) Total Protein 7.0 g/dL (6.4-8.2) Albumin 3.3 g/dL (3.4-5.0) Albumin/Globulin Ratio 0.9 (1.0-1.7) Amylase Level 76 U/L (25-115) Lipase 35 U/L (73-393) Thyroid Stimulating Hormone (TSH) 1.337 uIU/mL (0.358-3.74) Diagnosis: Diagnosis: Unspecified depression, rule out major depressive disorder. Unspecified anxiety, generalized anxiety disorder Assessment: 59-year-old gentleman with history of depression and anxiety admitted with suicidal attempt. Suicidal attempt appears to be not premeditated, occurred out of his shame and guilt by breaching trust of his whom he has very close association. He never had any previous suicidal attempt. He has positive protective factors including his close association with his , son and his anrdea. Additionally, he wants to work on himself to stabilize. Stating, first thing he will do following discharge to see his spa therapist and discuss in detail. He has access to firearms which he will handover to his and would not retain access. is also comfortable with patient's discharge once stable and assured the safety. She is in agreement to keep firearms to her self. Patient is in agreement with plan and resume outpatient services. Plan: Safety plan discussed in detail with patient and his . Both are in agreement to secure firearms. Also patient is in agreement to resume outpatient psychiatric service with his mental health provider and therapy services. Psychoeducation provided. Supportive psychotherapy provided. Insight oriented psychotherapy provided. Patient's was also involved in care. Thank you for involving inpatient care. CARLO MAGAÑA MD Dec 13, 2019 19:42
[2019-12-13] MEDS: ATORVASTATIN CALCIUM 20 MG TABLET PO SCH (20:50)
[2019-12-14 03:22] VITALS: BP 155/81
[2019-12-14 04:28] LABS: BASO % 0 % (0-3); EOS % 0 % (0-3); HEMATOCRIT 42.5 % (39.0-53.0); HEMOGLOBIN 14.6 g/dL (13.0-17.5); LYMPH # 1.7 x10^3/uL (1.0-4.8); LYMPH % 17 % (24-48); MEAN CORPUSCULAR HEMOGLOBIN 33 pg (25-35); MEAN CORPUSCULAR HGB CONC 35 g/dL (31-37); MEAN CORPUSCULAR VOLUME 95 fL (79-100); MONO # 1.1 x10^3/uL (0.0-1.1); MONO % 11 % (0-9); NEUT # 7.5 x10^3/uL (1.8-7.7); NEUT % 72 % (31-73); PLATELET COUNT 241 x10^3/uL (140-400); RED BLOOD COUNT 4.48 x10^6/uL (4.30-5.70); RED CELL DISTRIBUTION WIDTH 14.4 % (11.5-14.5); WHITE BLOOD COUNT 10.3 x10^3/uL (4.0-11.0)
[2019-12-14 04:51] LABS: PROTHROMBIN TIME PATIENT 14.1 SEC (11.7-14.0)
[2019-12-14 04:53] LABS: ALBUMIN 3.2 g/dL (3.4-5.0); ALBUMIN/GLOBULIN RATIO 0.9 (1.0-1.7); CALCIUM 8.1 mg/dL (8.5-10.1); CREATININE 0.6 mg/dL (0.7-1.3); GFR 137.4; POTASSIUM 3.5 mmol/L (3.5-5.1); TOTAL BILIRUBIN 0.9 mg/dL (0.2-1.0); TOTAL PROTEIN 6.8 g/dL (6.4-8.2)
[2019-12-14 07:00] VITALS: BP 129/67
[2019-12-14] MEDS: DOCUSATE SODIUM 100 MG CAPSULE. PO SCH ×2 (09:13→20:35)
[2019-12-14] MEDS: TAMSULOSIN 0.4 MG CAP.ER.24H. PO SCH (09:13)
[2019-12-14] MEDS: INSULIN LISPRO 300 UNITS/3 ML VIAL. SQ SCH ×3 (09:22→16:54)
--- NOTE | 2019-12-14 09:23 | PDOC ---
[facility] [facility] PROGRESS NOTE Date of Service DOS: DATE: 12/14/19 TIME: 09:18 Chief Complaint Chief Complaint Intentional overdose Suicide attempt - Tylenol overdose? More likely a reactive depressive episode, but he has stopped taking his medications due to this SVT (supraventricular tachycardia) - likely metabolic related vs conversion reaction with stress vs primary cardiac arrhythmia. on diltiazem and warfarin Pornography addiction - internet based pornography. He has made a plan with his to limit internet access, business and financial counsel with his PCP, and RSI. 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 Other family members have not tolerated NOACs well. He is bridging back on lovenox due to a recent sinus surgery 10 days ago. Will bridge with lovenox Diabetes - sliding scale Diverticulosis - stable Migraines - on topomax Consult psychiatry Consult cardiology Consult PAT History of Present Illness History of Present Illness Patient evaluated at bedside. He states he had a pleasant conversation with psychiatrist. He currently denies any suicidal ideation. He has a history of kidney stones, currently complains of some blood and urinary sediment. Recommend patient increase fluid intake and tamsulosin. Vitals/I&O Vitals/I&O: Vital Signs Date Time Temp Pulse Resp B/P (MAP) Pulse Ox O2 Delivery O2 Flow Rate FiO2 12/14/19 07:00 97.9 101 16 129/67 (87) 97 Room Air 97.9 I & O 12/13/19 12/13/19 12/14/19 15:00 23:00 07:00 Intake Total 1974 ml 372 ml 240 ml Output Total 500 ml 350 ml Balance 1474 ml 22 ml 240 ml Physical Exam General: Alert, Oriented X3, Cooperative, moderate distress Heart: Regular rate (SR), Normal S1, Normal S2, No murmurs Lungs: Clear Abdomen: Normal bowel sounds, Soft, No tenderness, No hepatosplenomegaly, No masses Extremities: No clubbing, No cyanosis, No edema, Normal pulses, No tenderness/swelling Skin: No rashes, No breakdown, No significant lesion Labs Labs: Laboratory Tests Test 12/13/19 17:25 12/14/19 03:30 Glucose (Fingerstick) 249 mg/dL (70-99) White Blood Count 10.3 x10^3/uL (4.0-11.0) Red Blood Count 4.48 x10^6/uL (4.30-5.70) Hemoglobin 14.6 g/dL (13.0-17.5) Hematocrit 42.5 % (39.0-53.0) Mean Corpuscular Volume 95 fL (79-100) Mean Corpuscular Hemoglobin 33 pg (25-35) Mean Corpuscular Hemoglobin Concent 35 g/dL (31-37) Red Cell Distribution Width 14.4 % (11.5-14.5) Platelet Count 241 x10^3/uL (140-400) Neutrophils (%) (Auto) 72 % (31-73) Lymphocytes (%) (Auto) 17 % (24-48) Monocytes (%) (Auto) 11 % (0-9) Eosinophils (%) (Auto) 0 % (0-3) Basophils (%) (Auto) 0 % (0-3) Neutrophils # (Auto) 7.5 x10^3/uL (1.8-7.7) Lymphocytes # (Auto) 1.7 x10^3/uL (1.0-4.8) Monocytes # (Auto) 1.1 x10^3/uL (0.0-1.1) Eosinophils # (Auto) 0.0 x10^3/uL (0.0-0.7) Basophils # (Auto) 0.0 x10^3/uL (0.0-0.2) Prothrombin Time 14.1 SEC (11.7-14.0) Prothromb Time International Ratio 1.1 (0.8-1.1) Sodium Level 137 mmol/L (136-145) Potassium Level 3.5 mmol/L (3.5-5.1) Chloride Level 103 mmol/L (98-107) Carbon Dioxide Level 22 mmol/L (21-32) Anion Gap 12 (6-14) Blood Urea Nitrogen 9 mg/dL (8-26) Creatinine 0.6 mg/dL (0.7-1.3) Estimated GFR (Cockcroft-Gault) 137.4 BUN/Creatinine Ratio 15 (6-20) Glucose Level 199 mg/dL (70-99) Calcium Level 8.1 mg/dL (8.5-10.1) Total Bilirubin 0.9 mg/dL (0.2-1.0) Aspartate Amino Transf (AST/SGOT) 18 U/L (15-37) Alanine Aminotransferase (ALT/SGPT) 27 U/L (16-63) Alkaline Phosphatase 51 U/L (46-116) Total Protein 6.8 g/dL (6.4-8.2) Albumin 3.2 g/dL (3.4-5.0) Albumin/Globulin Ratio 0.9 (1.0-1.7) Review of Systems Review of Systems: Denies fever, denies chest pain, denies shortness of breath. Assessment and Plan Problems: (1) Renal stones (2) SVT (supraventricular tachycardia) (3) Suicide attempt Comment Review of Relevant I have reviewed the following items kim (where applicable) has been applied. Medications: Current Medications Medications (Trade) Dose Ordered Sig/Tonie Route PRN Reason Start Time Stop Time Status Last Admin Dose Admin Warfarin Sodium (Coumadin) 4 mg DAILY16 PO 12/13/19 16:00 12/13/19 16:25 Diltiazem HCl (Cardizem 24hr Cd) 180 mg DAILY PO 12/13/19 10:00 12/13/19 10:11 Enoxaparin Sodium (Lovenox 100mg Syringe) 100 mg Q12HR SQ 12/13/19 16:00 12/13/19 16:25 Insulin Human Lispro (HumaLOG) 0-7 UNITS TIDWMEALS SQ 12/13/19 17:00 12/13/19 17:00 Justifications for Admission Other Justification MARISSA HALL MD Dec 14, 2019 09:23
[2019-12-14] MEDS: ONDANSETRON PF 4 MG/2 ML VIAL. IVP PRN ×2 (09:48→20:34)
--- NOTE | 2019-12-14 10:38 | PDOC ---
PROGRESS NOTES Date of Service: DATE: 12/14/19 TIME: 10:38 Subjective Subjective Feeling better. Denied any palpitations. Objective Objective Vital Signs Date Time Temp Pulse Resp B/P (MAP) Pulse Ox O2 Delivery O2 Flow Rate FiO2 12/14/19 09:13 101 129/67 12/14/19 07:00 97.9 16 97 Room Air 97.9 Intake and Output 12/14/19 07:00 Intake Total 2586 ml Output Total 850 ml Balance 1736 ml Intake Oral 2586 ml Output Urine Total 850 ml # Voids 2 Physical Exam Abdomen: Normal bowel sounds, Soft, No tenderness, No hepatosplenomegaly, No masses Heart: Regular rate (SR), Normal S1, Normal S2, No murmurs Extremities: No clubbing, No cyanosis, No edema, Normal pulses, No tenderness/swelling General: Alert, Oriented X3, Cooperative, moderate distress HEENT: Atraumatic, PERRLA, EOMI, Mucous membr. moist/pink Lungs: Clear to auscultation, Normal air movement MUSCULOSKELETAL: Osteoarthritic changes both hands Neuro: Normal gait, Normal speech, Strength at 5/5 X4 ext, Normal tone, Sensation intact, Cranial nerves 3-12 NL, Reflexes 2+ Psych/Mental Status: Other (distressed, pressured speech) Skin: No rashes, No breakdown, No significant lesion Assessment Assessment 1. Major depression with suicidal attempt: reported that he took handful of tylenol Monday. Psychiatric team following. 2. PSVT: likely Induced by metabolic derangement. Presently in sinus rhythm. Continue Cardizem. Plan outpatient event monitor. 3. DM2: per PCP 4. Anion gap metabolic acidosis with DKA and lactic acidosis 5. Hx of migraine: hence pt is on propranolol last dose Monday and also topamax 6. Abdominal pain/vomiting: with hx of diverticulosis and nephrolithiasis 7. 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 Leukocytosis Comment Review of Relevant I have reviewed the following items kim (where applicable) has been applied. Labs Laboratory Tests Test 12/13/19 17:25 12/14/19 03:30 Glucose (Fingerstick) 249 mg/dL (70-99) White Blood Count 10.3 x10^3/uL (4.0-11.0) Red Blood Count 4.48 x10^6/uL (4.30-5.70) Hemoglobin 14.6 g/dL (13.0-17.5) Hematocrit 42.5 % (39.0-53.0) Mean Corpuscular Volume 95 fL (79-100) Mean Corpuscular Hemoglobin 33 pg (25-35) Mean Corpuscular Hemoglobin Concent 35 g/dL (31-37) Red Cell Distribution Width 14.4 % (11.5-14.5) Platelet Count 241 x10^3/uL (140-400) Neutrophils (%) (Auto) 72 % (31-73) Lymphocytes (%) (Auto) 17 % (24-48) Monocytes (%) (Auto) 11 % (0-9) Eosinophils (%) (Auto) 0 % (0-3) Basophils (%) (Auto) 0 % (0-3) Neutrophils # (Auto) 7.5 x10^3/uL (1.8-7.7) Lymphocytes # (Auto) 1.7 x10^3/uL (1.0-4.8) Monocytes # (Auto) 1.1 x10^3/uL (0.0-1.1) Eosinophils # (Auto) 0.0 x10^3/uL (0.0-0.7) Basophils # (Auto) 0.0 x10^3/uL (0.0-0.2) Prothrombin Time 14.1 SEC (11.7-14.0) Prothromb Time International Ratio 1.1 (0.8-1.1) Sodium Level 137 mmol/L (136-145) Potassium Level 3.5 mmol/L (3.5-5.1) Chloride Level 103 mmol/L (98-107) Carbon Dioxide Level 22 mmol/L (21-32) Anion Gap 12 (6-14) Blood Urea Nitrogen 9 mg/dL (8-26) Creatinine 0.6 mg/dL (0.7-1.3) Estimated GFR (Cockcroft-Gault) 137.4 BUN/Creatinine Ratio 15 (6-20) Glucose Level 199 mg/dL (70-99) Calcium Level 8.1 mg/dL (8.5-10.1) Total Bilirubin 0.9 mg/dL (0.2-1.0) Aspartate Amino Transf (AST/SGOT) 18 U/L (15-37) Alanine Aminotransferase (ALT/SGPT) 27 U/L (16-63) Alkaline Phosphatase 51 U/L (46-116) Total Protein 6.8 g/dL (6.4-8.2) Albumin 3.2 g/dL (3.4-5.0) Albumin/Globulin Ratio 0.9 (1.0-1.7) Medications Current Medications Dextrose (Dextrose 50%-Water Syringe) 12.5 gm PRN Q15MIN PRN IV SEE COMMENTS; Start 12/13/19 at 15:15 Enoxaparin Sodium (Lovenox 100mg Syringe) 100 mg Q12HR SQ Last administered on 12/14/19at 09:14; Start 12/13/19 at 16:00 Insulin Human Lispro (HumaLOG) 0-7 UNITS TIDWMEALS SQ Last administered on 12/14/19at 09:22; Start 12/13/19 at 17:00 Warfarin Sodium (Coumadin Per Physician) 1 each PRN DAILY PRN MC SEE COMMENTS; Start 12/13/19 at 16:00 Warfarin Sodium (Coumadin) 4 mg DAILY16 PO Last administered on 12/13/19at 16:25; Start 12/13/19 at 16:00 Vitals/I & O Vital Sign - Last 24 Hours 12/13/19 12/13/19 12/13/19 12/13/19 11:00 12:00 16:00 20:06 Temp 99.9 98.4 99.9 98.4 Pulse 102 101 107 Resp B/P (MAP) 158/83 (108) 170/88 (115) 134/88 (103) Pulse Ox 96 97 98 O2 Delivery Room Air Room Air Room Air Room Air 12/13/19 12/13/19 12/14/19 12/14/19 20:31 23:06 03:22 07:00 Temp 97.7 98.0 98.0 97.9 97.7 98.0 98.0 97.9 Pulse 106 101 99 101 Resp 16 B/P (MAP) 162/91 (114) 158/71 (100) 155/81 (105) 129/67 (87) Pulse Ox 94 96 96 97 O2 Delivery Room Air Room Air Room Air Room Air 12/14/19 09:13 Pulse 101 B/P (MAP) 129/67 Intake and Output 9/18/20 9/18/20 9/19/20 15:00 23:00 07:00 Intake Total 1974 ml 372 ml 240 ml Output Total 500 ml 350 ml Balance 1474 ml 22 ml 240 ml GEOVANNA MADDEN MD Dec 14, 2019 10:38
[2019-12-14 11:00] VITALS: BP 134/73
[2019-12-14 16:00] VITALS: BP 153/79
[2019-12-14] MEDS: WARFARIN 4 MG TABLET. PO SCH (16:51)
[2019-12-14 19:39] VITALS: BP 173/82
[2019-12-14 20:01] LABS: BILIRUBIN,URINE MODERATE (NEG); CLARITY,URINE CLEAR; COLOR,URINE AMBER; NITRITE,URINE NEGATIVE (NEG); PROTEIN,URINE 30 mg/dL (NEG-TRACE)
[2019-12-14 20:10] LABS: BACTERIA,URINE FEW /HPF (0-FEW); SQUAMOUS EPITHELIAL CELL,UR FEW /LPF
[2019-12-14] MEDS: ATORVASTATIN CALCIUM 20 MG TABLET PO SCH (20:34)
[2019-12-14 23:15] VITALS: BP_SYST 131; BP_SYST 184; BP_DIAS 74; BP_DIAS 96
[2019-12-15 03:00] VITALS: BP 174/85
[2019-12-15 05:36] LABS: PROTHROMBIN TIME PATIENT 14.8 SEC (11.7-14.0)
[2019-12-15 06:27] LABS: ALBUMIN 3.1 g/dL (3.4-5.0); CALCIUM 8.1 mg/dL (8.5-10.1); CREATININE 0.5 mg/dL (0.7-1.3); GFR 169.6; POTASSIUM 3.7 mmol/L (3.5-5.1); TOTAL BILIRUBIN 0.9 mg/dL (0.2-1.0); TOTAL PROTEIN 6.2 g/dL (6.4-8.2)
[2019-12-15 07:59] VITALS: BP 112/69
[2019-12-15] MEDS: amLODIPine BESYLATE 5 MG TABLET PO SCH (08:15)
[2019-12-15] MEDS: DOCUSATE SODIUM 100 MG CAPSULE. PO SCH ×2 (08:15→22:21)
[2019-12-15] MEDS: TAMSULOSIN 0.4 MG CAP.ER.24H. PO SCH (08:16)
[2019-12-15] MEDS: ONDANSETRON PF 4 MG/2 ML VIAL. IVP PRN ×3 (08:17→22:21)
[2019-12-15] MEDS: INSULIN LISPRO 300 UNITS/3 ML VIAL. SQ SCH ×3 (08:25→17:18)
--- NOTE | 2019-12-15 09:09 | PDOC ---
[employer] [facility] PROGRESS NOTE Date of Service DOS: DATE: 12/15/19 TIME: 08:42 Chief Complaint Chief Complaint Intentional overdose Suicide attempt - Tylenol overdose? More likely a reactive depressive episode, but he has stopped taking his medications due to this SVT (supraventricular tachycardia) - likely metabolic related vs conversion reaction with stress vs primary cardiac arrhythmia. on diltiazem and warfarin Pornography addiction - internet based pornography. He has made a plan with his to limit internet access, phone counselor with his PCP, and ATIF. 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 Other family members have not tolerated NOACs well. He is bridging back on lovenox due to a recent sinus surgery 10 days ago. Will bridge with lovenox Diabetes - sliding scale Diverticulosis - stable Migraines - on topomax Consult psychiatry Consult cardiology Consult PAT History of Present Illness History of Present Illness 12/13 Patient evaluated at bedside. He states he had a pleasant conversation with psychiatrist. He currently denies any suicidal ideation. He has a history of kidney stones, currently complains of some blood and urinary sediment. Recommend patient increase fluid intake and tamsulosin. 12/14 Patient states he is not suicidal, and has a good network of support including his career services officer and family physician. Discussed with patient his addictive behaviors, will provide prescription for naltrexone 50 mg daily upon discharge. He is on warfarin for history of thrombophilia, however his INR remains subtherapeutic on day 3. Will increase warfarin to 10 mg daily, and recheck INR. States he has Lovenox at home and will be able to bridge if necessary. Would like to see his INR increase prior to discharge. UA with some red blood cells, negative nitrites. Continue tamsulosin. Vitals/I&O Vitals/I&O: Vital Signs Date Time Temp Pulse Resp B/P (MAP) Pulse Ox O2 Delivery O2 Flow Rate FiO2 12/15/19 08:15 112 177/144 12/15/19 03:00 97.3 19 95 Room Air 97.3 I & O 12/14/19 12/14/19 12/15/19 15:00 23:00 07:00 Intake Total 0 ml 180 ml Balance 0 ml 180 ml Physical Exam General: Alert, Oriented X3, Cooperative, moderate distress Heart: Regular rate (SR), Normal S1, Normal S2, No murmurs Lungs: Clear Abdomen: Normal bowel sounds, Soft, No tenderness, No hepatosplenomegaly, No masses Extremities: No clubbing, No cyanosis, No edema, Normal pulses, No tenderness/swelling Skin: No rashes, No breakdown, No significant lesion Labs Labs: Laboratory Tests Test 12/14/19 11:35 12/14/19 16:29 12/14/19 19:00 12/14/19 20:22 Glucose (Fingerstick) 178 mg/dL (70-99) 175 mg/dL (70-99) 177 mg/dL (70-99) Urine Collection Type Unknown Urine Color Rocio Urine Clarity Clear Urine pH 6.0 (<5.0-8.0) Urine Specific Hardin >=1.030 (1.000-1.030) Urine Protein 30 mg/dL (NEG-TRACE) Urine Glucose (UA) >=1000 mg/dL (NEG) Urine Ketones (Stick) 40 mg/dL (NEG) Urine Blood Negative (NEG) Urine Nitrite Negative (NEG) Urine Bilirubin Moderate (NEG) Urine Urobilinogen Dipstick 1.0 mg/dL (0.2 mg/dL) Urine Leukocyte Esterase Negative (NEG) Urine RBC 3-5 /HPF (0-2) Urine WBC 1-4 /HPF (0-4) Urine Squamous Epithelial Cells Few /LPF Urine Bacteria Few /HPF (0-FEW) Urine Mucus Marked /LPF Test 12/15/19 05:00 12/15/19 07:47 Prothrombin Time 14.8 SEC (11.7-14.0) Prothromb Time International Ratio 1.2 (0.8-1.1) Sodium Level 138 mmol/L (136-145) Potassium Level 3.7 mmol/L (3.5-5.1) Chloride Level 103 mmol/L (98-107) Carbon Dioxide Level 22 mmol/L (21-32) Anion Gap 13 (6-14) Blood Urea Nitrogen 10 mg/dL (8-26) Creatinine 0.5 mg/dL (0.7-1.3) Estimated GFR (Cockcroft-Gault) 169.6 BUN/Creatinine Ratio 20 (6-20) Glucose Level 150 mg/dL (70-99) Calcium Level 8.1 mg/dL (8.5-10.1) Total Bilirubin 0.9 mg/dL (0.2-1.0) Aspartate Amino Transf (AST/SGOT) 19 U/L (15-37) Alanine Aminotransferase (ALT/SGPT) 29 U/L (16-63) Alkaline Phosphatase 46 U/L (46-116) Total Protein 6.2 g/dL (6.4-8.2) Albumin 3.1 g/dL (3.4-5.0) Albumin/Globulin Ratio 1.0 (1.0-1.7) Glucose (Fingerstick) 165 mg/dL (70-99) Review of Systems Review of Systems: Denies SI. All review of systems negative. Assessment and Plan Problems: (1) SVT (supraventricular tachycardia) (2) Suicide attempt (3) Renal stones Comment Review of Relevant I have reviewed the following items kim (where applicable) has been applied. Medications: Current Medications Medications (Trade) Dose Ordered Sig/Tonie Route PRN Reason Start Time Stop Time Status Last Admin Dose Admin Amlodipine Besylate (Norvasc) 5 mg DAILY PO 12/15/19 09:00 12/15/19 08:15 Justifications for Admission Other Justification MARISSA HALL MD Dec 15, 2019 09:09
--- NOTE | 2019-12-15 09:36 | PDOC ---
PROGRESS NOTES Date of Service: DATE: 12/15/19 TIME: 09:36 Subjective Subjective Feeling better. Denied any palpitations. Objective Objective Vital Signs Date Time Temp Pulse Resp B/P (MAP) Pulse Ox O2 Delivery O2 Flow Rate FiO2 12/15/19 08:15 112 177/144 12/15/19 07:59 97.8 22 93 Room Air 97.8 Intake and Output 12/15/19 07:00 Intake Total 180 ml Balance 180 ml Intake Oral 180 ml Physical Exam Abdomen: Normal bowel sounds, Soft, No tenderness, No hepatosplenomegaly, No masses Heart: Regular rate (SR), Normal S1, Normal S2, No murmurs Extremities: No clubbing, No cyanosis, No edema, Normal pulses, No tenderness/swelling General: Alert, Oriented X3, Cooperative, moderate distress HEENT: Atraumatic, PERRLA, EOMI, Mucous membr. moist/pink Lungs: Clear to auscultation, Normal air movement MUSCULOSKELETAL: Osteoarthritic changes both hands Neuro: Normal gait, Normal speech, Strength at 5/5 X4 ext, Normal tone, Sensation intact, Cranial nerves 3-12 NL, Reflexes 2+ Psych/Mental Status: Other (distressed, pressured speech) Skin: No rashes, No breakdown, No significant lesion Assessment Assessment 1. Major depression with suicidal attempt: reported that he took handful of tylenol Monday. Psychiatric team following. 2. PSVT: likely Induced by metabolic derangement. Presently in sinus rhythm. Continue Cardizem. Plan outpatient event monitor. 3. DM2: per PCP 4. Anion gap metabolic acidosis with DKA and lactic acidosis 5. Hx of migraine: hence pt is on propranolol last dose Monday and also topamax 6. Abdominal pain/vomiting: with hx of diverticulosis and nephrolithiasis 7. 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 Leukocytosis Comment Review of Relevant I have reviewed the following items kim (where applicable) has been applied. Labs Laboratory Tests Test 12/14/19 11:35 12/14/19 16:29 12/14/19 19:00 12/14/19 20:22 Glucose (Fingerstick) 178 mg/dL (70-99) 175 mg/dL (70-99) 177 mg/dL (70-99) Urine Collection Type Unknown Urine Color Rocio Urine Clarity Clear Urine pH 6.0 (<5.0-8.0) Urine Specific [place] >=1.030 (1.000-1.030) Urine Protein 30 mg/dL (NEG-TRACE) Urine Glucose (UA) >=1000 mg/dL (NEG) Urine Ketones (Stick) 40 mg/dL (NEG) Urine Blood Negative (NEG) Urine Nitrite Negative (NEG) Urine Bilirubin Moderate (NEG) Urine Urobilinogen Dipstick 1.0 mg/dL (0.2 mg/dL) Urine Leukocyte Esterase Negative (NEG) Urine RBC 3-5 /HPF (0-2) Urine WBC 1-4 /HPF (0-4) Urine Squamous Epithelial Cells Few /LPF Urine Bacteria Few /HPF (0-FEW) Urine Mucus Marked /LPF Test 12/15/19 05:00 12/15/19 07:47 Prothrombin Time 14.8 SEC (11.7-14.0) Prothromb Time International Ratio 1.2 (0.8-1.1) Sodium Level 138 mmol/L (136-145) Potassium Level 3.7 mmol/L (3.5-5.1) Chloride Level 103 mmol/L (98-107) Carbon Dioxide Level 22 mmol/L (21-32) Anion Gap 13 (6-14) Blood Urea Nitrogen 10 mg/dL (8-26) Creatinine 0.5 mg/dL (0.7-1.3) Estimated GFR (Cockcroft-Gault) 169.6 BUN/Creatinine Ratio 20 (6-20) Glucose Level 150 mg/dL (70-99) Calcium Level 8.1 mg/dL (8.5-10.1) Total Bilirubin 0.9 mg/dL (0.2-1.0) Aspartate Amino Transf (AST/SGOT) 19 U/L (15-37) Alanine Aminotransferase (ALT/SGPT) 29 U/L (16-63) Alkaline Phosphatase 46 U/L (46-116) Total Protein 6.2 g/dL (6.4-8.2) Albumin 3.1 g/dL (3.4-5.0) Albumin/Globulin Ratio 1.0 (1.0-1.7) Glucose (Fingerstick) 165 mg/dL (70-99) Medications Current Medications Amlodipine Besylate (Norvasc) 5 mg DAILY PO Last administered on 12/15/19at 08:15; Start 9/20/20 at 09:00 Warfarin Sodium (Coumadin) 10 mg DAILY16 PO ; Start 12/15/19 at 16:00 Vitals/I & O Vital Sign - Last 24 Hours 12/14/19 12/14/19 12/14/19 12/14/19 11:00 16:00 19:39 20:05 Temp 98.6 98.5 98.8 98.6 98.5 98.8 Pulse 97 100 85 Resp 18 B/P (MAP) 134/73 (93) 153/79 (103) 173/82 (112) Pulse Ox 99 95 O2 Delivery Room Air Room Air Room Air Room Air 12/14/19 12/15/19 12/15/19 12/15/19 23:15 03:00 07:59 08:15 Temp 98.7 97.3 97.8 98.7 97.3 97.8 Pulse 92 93 101 112 Resp 22 B/P (MAP) 131/74 (93) 174/85 (114) 112/69 (83) 177/144 Pulse Ox 93 95 93 O2 Delivery Room Air Room Air Room Air 12/15/19 08:15 Pulse 112 B/P (MAP) 177/144 Intake and Output 12/14/19 12/14/19 12/15/19 15:00 23:00 07:00 Intake Total 0 ml 180 ml Balance 0 ml 180 ml GEOVANNA MADDEN MD Dec 15, 2019 09:36
[2019-12-15 11:49] VITALS: BP 137/83
[2019-12-15 15:59] VITALS: BP 117/65
[2019-12-15] MEDS ORDERED: WARFARIN 5 MG TABLET. PO SCH (16:00)
[2019-12-15 19:00] VITALS: BP 145/67
[2019-12-15] MEDS: ATORVASTATIN CALCIUM 20 MG TABLET PO SCH (22:22)
[2019-12-15 23:00] VITALS: BP 132/76
[2019-12-16 03:00] VITALS: BP 127/71
[2019-12-16 05:38] LABS: CALCIUM 8.2 mg/dL (8.5-10.1); CREATININE 0.6 mg/dL (0.7-1.3); GFR 137.4; POTASSIUM 3.5 mmol/L (3.5-5.1)
[2019-12-16 07:25] VITALS: BP 146/91
[2019-12-16] MEDS: INSULIN LISPRO 300 UNITS/3 ML VIAL. SQ SCH ×2 (08:00→12:00)
--- NOTE | 2019-12-16 08:46 | PDOC ---
PROGRESS NOTES Date of Service: DATE: 12/16/19 TIME: 08:46 Chief Complaint Chief Complaint discharge dx Intentional overdose Suicide attempt - Tylenol overdose? More likely a reactive depressive episode, but he has stopped taking his medications due to this, CLEARED BY PAT TEAM FOR D/C PER RN SVT (supraventricular tachycardia) - likely metabolic related vs conversion reaction with stress vs primary cardiac arrhythmia. on diltiazem and warfarin Pornography addiction - internet based pornography. 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 Other family members have not tolerated NOACs well. He is bridging back on lovenox due to a recent sinus surgery 10 days ago. Will bridge with lovenox Diabetes - sliding scale Diverticulosis - stable Migraines - on topomax Consult psychiatry Consult cardiology Consult PAT NOTED d/c planning 33 min History of Present Illness History of Present Illness 12/13 Patient evaluated at bedside. He states he had a pleasant conversation with psychiatrist. He currently denies any suicidal ideation. He has a history of kidney stones, currently complains of some blood and urinary sediment. Recommend patient increase fluid intake and tamsulosin. 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 Discussed with patient his addictive be haviors, will provide prescription for naltrexone 50 mg daily upon discharge. He is on warfarin for history of thrombophilia, however his INR remains subtherapeutic on day 3. Will increase warfarin to 10 mg daily, and recheck INR. States he has Lovenox at home and will be able to bridge if necessary. Would like to see his INR increase prior to discharge. UA with some red blood cells, negative nitrites. Continue tamsulosin. PSVT: likely Induced by metabolic derangement. Presently in sinus rhythm. Continue Cardizem. Plan outpatient event monitor.SW following. Discussed with RN, pt was cleared by PAT team to return home. Vitals Vitals Vital Signs Date Time Temp Pulse Resp B/P (MAP) Pulse Ox O2 Delivery O2 Flow Rate FiO2 12/16/19 07:25 98.2 96 20 146/91 (109) 95 Room Air 98.2 Physical Exam General: Alert, Oriented X3, Cooperative, No acute distress Heart: Regular rate (SR), Normal S1, Normal S2, No murmurs Lungs: Clear Abdomen: Normal bowel sounds, Soft, No tenderness, No hepatosplenomegaly, No masses Extremities: No clubbing, No cyanosis, No edema, Normal pulses, No tenderness/swelling Skin: No rashes, No breakdown, No significant lesion Labs LABS Laboratory Tests Test 12/15/19 11:44 12/15/19 16:53 12/15/19 20:07 12/16/19 04:57 Glucose (Fingerstick) 166 mg/dL (70-99) 205 mg/dL (70-99) 151 mg/dL (70-99) Sodium Level 140 mmol/L (136-145) Potassium Level 3.5 mmol/L (3.5-5.1) Chloride Level 104 mmol/L (98-107) Carbon Dioxide Level 25 mmol/L (21-32) Anion Gap 11 (6-14) Blood Urea Nitrogen 10 mg/dL (8-26) Creatinine 0.6 mg/dL (0.7-1.3) Estimated GFR (Cockcroft-Gault) 137.4 Glucose Level 137 mg/dL (70-99) Calcium Level 8.2 mg/dL (8.5-10.1) Test 12/16/19 08:05 Glucose (Fingerstick) 145 mg/dL (70-99) Assessment and Plan Assessmemt and Plan DPOA REVIEW 18 MIN What Is a Power of Art Appraiser? A power of securities attorney (POA) is a legal document giving one person (the agent or [id number]-hens) the power to act for another person (the principal). The agent can have broad legal authority or limited authority to make legal decisions about the principal's property, finances or medical care. The power of securities attorney is frequently used in the event of a principal's illness or disability, or when the principal can't be present to sign necessary legal documents for financial transactions. A power of securities attorney can end for a number of reasons, such as when the principal dies, the principal revokes it, a court invalidates it, the principal divorces their spouse, who happens to be the agent, or the agent can no longer carry out the outlined responsibilities. Conventional POAs lapse when the creator becomes incapacitated, but a durable POA remains in force to enable the agent to manage the creators affairs, and a springing POA comes into effect only if and when the creator of the POA becomes incapacitated. A medical or healthcare POA enables an agent to make medical decisions on behalf of an incapacitated person. [place] Take[employer] A power of securities attorney (POA) is a legal document giving one person, the agent or [id number] the power to act for another person, the principal. The agent can have broad legal authority or limited authority to make decisions about the principal's property, finances or medical care. The power of securities attorney is often used when a principal becomes ill or disabled, or when they can't be present to sign necessary legal documents for financial transactions. Understanding Power of Art Appraiser A power of securities attorney should be considered when planning for long-term care. There are different types of POAs that fall under either a general power of securities attorney or limited power of securities attorney. A general power of securities attorney acts on behalf of the principal in any and all matters, as allowed by the state. The agent under a general POA agreement may be authorized to take care of issues such as handling bank accounts, signing checks, selling property and assets like stocks, f A limited power of securities attorney gives the agent the power to act on behalf of the principal in specific matters or events. For example, the limited POA may explicitly state that the agent is only allowed to manage the principal's long-term accounts. A limited POA may also be limited to a specific period of time (e.g., if the principal will be out of the country for, say, two years). Most [place] of securities attorney documents allow an agent to represent the principal in all property and financial matters as long as the principals mental state of mind is good. If a situation occurs where the principal becomes incapable of making decisions for him or herself, the POA agreement would automatically end. However, someone who wants the POA to remain in effect after the persons health deteriorates would need to sign a durable power of securities attorney (DPOA). What is an advance directive? An advance directive is a legal document that says how you want to be cared for if you are unable to make decisions. You can include what medical treatments you would want and who you would trust to make decisions for you. An advance directive can also include other legal documents. A living will is a list of treatment preferences. It can be used to indicate whether you would want cardiopulmonary resuscitation (CPR), tube feedings, a breathing machine, or certain medicines, like antibiotics. The durable power of securities attorney for health care document identifies the person you would want to make medical decisions for you. This person is also called a proxy. Your proxy should be familiar with your values and wishes. How do I get started? You can get advance directive documents for your state from your doctor's office or from http://www.caringinfo.org. Review the forms, and ask your doctor if you have any questions. Pick a person to be your proxy, and talk it over with that person. Comment Review of Relevant I have reviewed the following items kim (where applicable) has been applied. Labs Laboratory Tests Test 12/14/19 11:35 12/14/19 16:29 12/14/19 19:00 12/14/19 20:22 Glucose (Fingerstick) 178 mg/dL (70-99) 175 mg/dL (70-99) 177 mg/dL (70-99) Urine Collection Type Unknown Urine Color Rocio Urine Clarity Clear Urine pH 6.0 (<5.0-8.0) Urine Specific [place] >=1.030 (1.000-1.030) Urine Protein 30 mg/dL (NEG-TRACE) Urine Glucose (UA) >=1000 mg/dL (NEG) Urine Ketones (Stick) 40 mg/dL (NEG) Urine Blood Negative (NEG) Urine Nitrite Negative (NEG) Urine Bilirubin Moderate (NEG) Urine Urobilinogen Dipstick 1.0 mg/dL (0.2 mg/dL) Urine Leukocyte Esterase Negative (NEG) Urine RBC 3-5 /HPF (0-2) Urine WBC 1-4 /HPF (0-4) Urine Squamous Epithelial Cells Few /LPF Urine Bacteria Few /HPF (0-FEW) Urine Mucus Marked /LPF Test 12/15/19 05:00 12/15/19 07:47 12/15/19 11:44 12/15/19 16:53 Prothrombin Time 14.8 SEC (11.7-14.0) Prothromb Time International Ratio 1.2 (0.8-1.1) Sodium Level 138 mmol/L (136-145) Potassium Level 3.7 mmol/L (3.5-5.1) Chloride Level 103 mmol/L (98-107) Carbon Dioxide Level 22 mmol/L (21-32) Anion Gap 13 (6-14) Blood Urea Nitrogen 10 mg/dL (8-26) Creatinine 0.5 mg/dL (0.7-1.3) Estimated GFR (Cockcroft-Gault) 169.6 BUN/Creatinine Ratio 20 (-20) Glucose Level 150 mg/dL (70-99) Calcium Level 8.1 mg/dL (8.5-10.1) Total Bilirubin 0.9 mg/dL (0.2-1.0) Aspartate Amino Transf (AST/SGOT) 19 U/L (15-37) Alanine Aminotransferase (ALT/SGPT) 29 U/L (16-63) Alkaline Phosphatase 46 U/L (46-116) Total Protein 6.2 g/dL (6.4-8.2) Albumin 3.1 g/dL (3.4-5.0) Albumin/Globulin Ratio 1.0 (1.0-1.7) Glucose (Fingerstick) 165 mg/dL (70-99) 166 mg/dL (70-99) 205 mg/dL (70-99) Test 12/15/19 20:07 12/16/19 04:57 12/16/19 08:05 Glucose (Fingerstick) 151 mg/dL (70-99) 145 mg/dL (70-99) Sodium Level 140 mmol/L (136-145) Potassium Level 3.5 mmol/L (3.5-5.1) Chloride Level 104 mmol/L (98-107) Carbon Dioxide Level 25 mmol/L (21-32) Anion Gap 11 (6-14) Blood Urea Nitrogen 10 mg/dL (8-26) Creatinine 0.6 mg/dL (0.7-1.3) Estimated GFR (Cockcroft-Gault) 137.4 Glucose Level 137 mg/dL (70-99) Calcium Level 8.2 mg/dL (8.5-10.1) Laboratory Tests Test 12/15/19 11:44 12/15/19 16:53 12/15/19 20:07 12/16/19 04:57 Glucose (Fingerstick) 166 mg/dL (70-99) 205 mg/dL (70-99) 151 mg/dL (70-99) Sodium Level 140 mmol/L (136-145) Potassium Level 3.5 mmol/L (3.5-5.1) Chloride Level 104 mmol/L (98-107) Carbon Dioxide Level 25 mmol/L (21-32) Anion Gap 11 (6-14) Blood Urea Nitrogen 10 mg/dL (8-26) Creatinine 0.6 mg/dL (0.7-1.3) Estimated GFR (Cockcroft-Gault) 137.4 Glucose Level 137 mg/dL (70-99) Calcium Level 8.2 mg/dL (8.5-10.1) Test 12/16/19 08:05 Glucose (Fingerstick) 145 mg/dL (70-99) Medications Current Medications Atorvastatin Calcium (Lipitor) 20 mg HS PO Last administered on 12/15/19at 22:22; Start 12/12/19 at 21:00 Tamsulosin HCl (Flomax) 0.4 mg DAILY PO Last administered on 12/15/19at 08:16; Start 12/13/19 at 09:00 Warfarin Sodium (Coumadin) 4 mg DAILY16 PO Last administered on 12/14/19at 16:51; Start 12/13/19 at 16:00; Stop 12/15/19 at 09:06; Status DC Ondansetron HCl (Zofran) 4 mg PRN Q6HRS PRN IVP NAUSEA/VOMITING Last administered on 12/15/19at 22:21; Start 12/12/19 at 21:00 Docusate Sodium (Colace) 100 mg BID PO Last administered on 12/15/19at 22:21; Start 12/12/19 at 21:00 Lactulose (Lactulose) 20 gm PRN Q12HR PRN PO CONSTIPATION; Start 12/12/19 at 21:00 Bisacodyl (Dulcolax Supp) 10 mg PRN DAILY PRN [place] CONSTIPATION; Start 12/12/19 at 21:00 Diltiazem HCl 125 mg/Sodium Chloride 125 ml @ 5 mls/hr CONT PRN IV SEE I/O RECORD Last administered on 12/13/19at 00:22; Start 12/12/19 at 21:00; Stop 12/13/19 at 09:36; Status DC Temazepam (Restoril) 7.5 mg PRN QHS PRN PO INSOMNIA Last administered on 12/13/19at 20:50; Start 12/12/19 at 21:15 Olanzapine (ZyPREXA ZYDIS) 5 mg PRN BID PRN PO agitation, anxiety Last admini stered on 12/15/19at 22:22; Start 12/12/19 at 21:15 Warfarin Sodium (Coumadin Per Physician) 1 each PRN DAILY PRN MC SEE COMMENTS Last administered on 12/15/19 14:57; Start 12/13/19 at 16:00 Diltiazem HCl (Cardizem 24hr Cd) 180 mg DAILY PO Last administered on 12/15/19at 08:15; Start 12/13/19 at 10:00 Enoxaparin Sodium (Lovenox 100mg Syringe) 100 mg Q12HR SQ Last administered on 12/15/19at 22:22; Start 12/13/19 at 16:00 Insulin Human Lispro (HumaLOG) 0-7 UNITS TIDWMEALS SQ Last administered on 12/15/19 17:18; Start 12/13/19 at 17:00 Dextrose (Dextrose 50%-Water Syringe) 12.5 gm PRN Q15MIN PRN IV SEE COMMENTS; Start 12/13/19 at 15:15 Amlodipine Besylate (Norvasc) 5 mg DAILY PO Last administered on 12/15/19at 08:15; Start 12/15/19 at 09:00 Warfarin Sodium (Coumadin) 10 mg DAILY16 PO Last administered on 12/15/19at 16:01; Start 12/15/19 at 16:00 Active Scripts Active Lovenox (Enoxaparin Sodium) 40 Mg/0.4 Ml Disp.syrin 120 Mg SQ BID 5 Days Percocet 5-325 Mg Tablet (Oxycodone/Acetaminophen) 1 Each Tablet 1 Tab PO QID Reported Coumadin (Warfarin Sodium) 4 Mg Tablet 1 Tab PO DAILY Trintellix (Vortioxetine) 20 Mg Tablet 20 Mg PO DAILY Flomax (Tamsulosin Hcl) 0.4 Mg Cap.er.24h 1 Cap PO DAILY Propranolol Hcl 40 Mg Tablet 3 Tab PO DAILY Fenofibrate 160 Mg Tablet 1 Tab PO QHS Atorvastatin Calcium 20 Mg Tablet 20 Mg PO HS Vitals/I & O Vital Sign - Last 24 Hours 12/15/19 12/15/19 12/15/19 12/15/19 11:49 15:59 19:00 20:07 Temp 98.4 98.3 98.0 98.4 98.3 98.0 Pulse 101 53 99 Resp B/P (MAP) 137/83 (101) 117/65 (82) 145/67 (93) Pulse Ox 97 96 98 O2 Delivery Room Air Room Air Room Air Room Air 12/15/19 12/16/19 12/16/19 23:00 03:00 07:25 Temp 98.0 98.6 98.2 98.0 98.6 98.2 Pulse 92 95 96 Resp B/P (MAP) 132/76 (94) 127/71 (89) 146/91 (109) Pulse Ox 96 95 95 O2 Delivery Room Air Room Air Room Air Intake and Output 12/15/19 12/15/19 12/16/19 15:00 23:00 07:00 Intake Total 120 ml 100 ml 30 ml Balance 120 ml 100 ml 30 ml Justicifation of Admission Dx: Justifications for Admission: Justification of Admission Dx: Yes Comments: suicide gesture ELOY MADDEN MD Dec 16, 2019 08:46
--- NOTE | 2019-12-16 09:37 | NUR ---
SW following. Discussed with RN, pt was cleared by PAT team to return home. Dr. Hess has been consulted. Anticipate discharge home with self care after seen by Dr. Hess. Pt has identified supports at home - , mail machine operator, PCP. SW will continue to follow.
--- NOTE | 2019-12-16 10:20 | PDOC3 ---
Discharge Summary Date of Admission: Dec 13, 2019 Date of Discharge: Dec 16, 2019 Follow-Up: 3-5 days Admitting Diagnosis comment: discharge dx Intentional overdose Suicide attempt - Tylenol overdose? More likely a reactive depressive episode, but he has stopped taking his medications due to this, CLEARED BY PAT TEAM FOR D/C PER RN SVT (supraventricular tachycardia) - likely metabolic related vs conversion reaction with stress vs primary cardiac arrhythmia. on diltiazem and warfarin Pornography addiction - internet based pornography. He has made a plan with his to limit internet access, delinquency counselor with his PCP, and ATIF. 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 Other family members have not tolerated NOACs well. He is bridging back on lovenox due to a recent sinus surgery 10 days ago. Will bridge with lovenox Diabetes - sliding scale Diverticulosis - stable Migraines - on topomax Consult psychiatry Consult cardiology Consult PAT NOTED d/c planning 33 min History of Present Illness History of Present Illness 12/13 Patient evaluated at bedside. He states he had a pleasant conversation with psychiatrist. He currently denies any suicidal ideation. He has a history of kidney stones, currently complains of some blood and urinary sediment. Recommend patient increase fluid intake and tamsulosin. 12/15 Patient states he is not suicidal, and has a good network of support including his electrical apprentice and family physician. Discussed with patient his addictive behaviors, will provide prescription for naltrexone 50 mg daily upon discharge. He is on warfarin for history of thrombophilia, however his INR remains subtherapeutic on day 3. Will increase warfarin to 10 mg daily, and recheck INR. States he has Lovenox at home and will be able to bridge if necessary. Would like to see his INR increase prior to discharge. UA with some red blood cells, negative nitrites. Continue tamsulosin. PSVT: likely Induced by metabolic derangement. Presently in sinus rhythm. Continue Cardizem. Plan outpatient event monitor.SW following. Discussed with RN, pt was cleared by PAT team to return home. Vitals Vitals Vital Signs Date Time Temp Pulse Resp B/P (MAP) Pulse Ox O2 Delivery O2 Flow Rate FiO2 9/21/20 07:25 98.2 96 20 146/91 (109) 95 Room Air 98.2 Physical Exam General: Alert, Oriented X3, Cooperative, No acute distress Heart: Regular rate (SR), Normal S1, Normal S2, No murmurs Lungs: Clear Abdomen: Normal bowel sounds, Soft, No tenderness, No hepatosplenomegaly, No masses Extremities: No clubbing, No cyanosis, No edema, Normal pulses, No tenderness/swelling Skin: No rashes, No breakdown, No significant lesion Labs Brief Hospital Course Mr. Duncan is a 59 old [sex] who presented with [ suicide ideations ] CONDITION AT DISCHARGE: Improved Discharge Medications Current Medications Atorvastatin Calcium (Lipitor) 20 mg HS PO Last administered on 12/15/19at 22:22; Start 12/12/19 at 21:00 Tamsulosin HCl (Flomax) 0.4 mg DAILY PO Last administered on 12/15/19at 08:16; Start 12/13/19 at 09:00 Warfarin Sodium (Coumadin) 4 mg DAILY16 PO Last administered on 12/14/19at 16:51; Start 12/13/19 at 16:00; Stop 12/15/19 at 09:06; Status DC Ondansetron HCl (Zofran) 4 mg PRN Q6HRS PRN IVP NAUSEA/VOMITING Last administered on 12/15/19at 22:21; Start 12/12/19 at 21:00 Docusate Sodium (Colace) 100 mg BID PO Last administered on 12/15/19at 22:21; Start 12/12/19 at 21:00 Lactulose (Lactulose) 20 gm PRN Q12HR PRN PO CONSTIPATION; Start 12/12/19 at 21:00 Bisacodyl (Dulcolax Supp) 10 mg PRN DAILY PRN MS CONSTIPATION; Start 12/12/19 at 21:00 Diltiazem HCl 125 mg/Sodium Chloride 125 ml @ 5 mls/hr CONT PRN IV SEE I/O RECORD Last administered on 12/13/19at 00:22; Start 12/12/19 at 21:00; Stop 12/13/19 at 09:36; Status DC Temazepam (Restoril) 7.5 mg PRN QHS PRN PO INSOMNIA Last administered on 12/13/19at 20:50; Start 12/12/19 at 21:15 Olanzapine (ZyPREXA ZYDIS) 5 mg PRN BID PRN PO agitation, anxiety Last administered on 12/15/19 22:22; Start 12/12/19 at 21:15 Warfarin Sodium (Coumadin Per Physician) 1 each PRN DAILY PRN MC SEE COMMENTS Last administered on 12/15/19at 14:57; Start 12/13/19 at 16:00 Diltiazem HCl (Cardizem 24hr Cd) 180 mg DAILY PO Last administered on 12/15/19at 08:15; Start 12/13/19 at 10:00 Enoxaparin Sodium (Lovenox 100mg Syringe) 100 mg Q12HR SQ Last administered on 12/15/19 22:22; Start 12/13/19 at 16:00 Insulin Human Lispro (HumaLOG) 0-7 UNITS TIDWMEALS SQ Last administered on 12/15/19at 17:18; Start 12/13/19 at 17:00 Dextrose (Dextrose 50%-Water Syringe) 12.5 gm PRN Q15MIN PRN IV SEE COMMENTS; Start 12/13/19 at 15:15 Amlodipine Besylate (Norvasc) 5 mg DAILY PO Last administered on 12/15/19at 08:15; Start 12/15/19 at 09:00 Warfarin Sodium (Coumadin) 10 mg DAILY16 PO Last administered on 12/15/19at 16:01; Start 12/15/19 at 16:00 Active Scripts Active Lovenox (Enoxaparin Sodium) 40 Mg/0.4 Ml Disp.syrin 120 Mg SQ BID 5 Days Percocet 5-325 Mg Tablet (Oxycodone/Acetaminophen) 1 Each Tablet 1 Tab PO QID Reported Coumadin (Warfarin Sodium) 4 Mg Tablet 1 Tab PO DAILY Trintellix (Vortioxetine) 20 Mg Tablet 20 Mg PO DAILY Flomax (Tamsulosin Hcl) 0.4 Mg Cap.er.24h 1 Cap PO DAILY Propranolol Hcl 40 Mg Tablet 3 Tab PO DAILY Fenofibrate 160 Mg Tablet 1 Tab PO QHS Atorvastatin Calcium 20 Mg Tablet 20 Mg PO HS Vital Signs Vital Signs Date Time Temp Pulse Resp B/P (MAP) Pulse Ox O2 Delivery O2 Flow Rate FiO2 12/16/19 08:00 Room Air 12/16/19 07:25 98.2 96 20 146/91 (109) 95 98.2 Labs Laboratory Tests Test 12/14/19 11:35 12/14/19 16:29 12/14/19 19:00 12/14/19 20:22 Glucose (Fingerstick) 178 mg/dL (70-99) 175 mg/dL (70-99) 177 mg/dL (70-99) Urine Collection Type Unknown Urine Color Rocio Urine Clarity Clear Urine pH 6.0 (<5.0-8.0) Urine Specific [place]coe >=1.030 (1.000-1.030) Urine Protein 30 mg/dL (NEG-TRACE) Urine Glucose (UA) >=1000 mg/dL (NEG) Urine Ketones (Stick) 40 mg/dL (NEG) Urine Blood Negative (NEG) Urine Nitrite Negative (NEG) Urine Bilirubin Moderate (NEG) Urine Urobilinogen Dipstick 1.0 mg/dL (0.2 mg/dL) Urine Leukocyte Esterase Negative (NEG) Urine RBC 3-5 /HPF (0-2) Urine WBC 1-4 /HPF (0-4) Urine Squamous Epithelial Cells Few /LPF Urine Bacteria Few /HPF (0-FEW) Urine Mucus Marked /LPF Test 12/15/19 05:00 12/15/19 07:47 12/15/19 11:44 12/15/19 16:53 Prothrombin Time 14.8 SEC (11.7-14.0) Prothromb Time International Ratio 1.2 (0.8-1.1) Sodium Level 138 mmol/L (136-145) Potassium Level 3.7 mmol/L (3.5-5.1) Chloride Level 103 mmol/L (98-107) Carbon Dioxide Level 22 mmol/L (21-32) Anion Gap 13 (6-14) Blood Urea Nitrogen 10 mg/dL (8-26) Creatinine 0.5 mg/dL (0.7-1.3) Estimated GFR (Cockcroft-Gault) 169.6 BUN/Creatinine Ratio 20 (6-20) Glucose Level 150 mg/dL (70-99) Calcium Level 8.1 mg/dL (8.5-10.1) Total Bilirubin 0.9 mg/dL (0.2-1.0) Aspartate Amino Transf (AST/SGOT) 19 U/L (15-37) Alanine Aminotransferase (ALT/SGPT) 29 U/L (16-63) Alkaline Phosphatase 46 U/L (46-116) Total Protein 6.2 g/dL (6.4-8.2) Albumin 3.1 g/dL (3.4-5.0) Albumin/Globulin Ratio 1.0 (1.0-1.7) Glucose (Fingerstick) 165 mg/dL (70-99) 166 mg/dL (70-99) 205 mg/dL (70-99) Test 12/15/19 20:07 12/16/19 04:57 12/16/19 08:05 Glucose (Fingerstick) 151 mg/dL (70-99) 145 mg/dL (70-99) Sodium Level 140 mmol/L (136-145) Potassium Level 3.5 mmol/L (3.5-5.1) Chloride Level 104 mmol/L (98-107) Carbon Dioxide Level 25 mmol/L (21-32) Anion Gap 11 (6-14) Blood Urea Nitrogen 10 mg/dL (8-26) Creatinine 0.6 mg/dL (0.7-1.3) Estimated GFR (Cockcroft-Gault) 137.4 Glucose Level 137 mg/dL (70-99) Calcium Level 8.2 mg/dL (8.5-10.1) Laboratory Tests Test 12/15/19 11:44 12/15/19 16:53 12/15/19 20:07 12/16/19 04:57 Glucose (Fingerstick) 166 mg/dL (70-99) 205 mg/dL (70-99) 151 mg/dL (70-99) Sodium Level 140 mmol/L (136-145) Potassium Level 3.5 mmol/L (3.5-5.1) Chloride Level 104 mmol/L (98-107) Carbon Dioxide Level 25 mmol/L (21-32) Anion Gap 11 (6-14) Blood Urea Nitrogen 10 mg/dL (8-26) Creatinine 0.6 mg/dL (0.7-1.3) Estimated GFR (Cockcroft-Gault) 137.4 Glucose Level 137 mg/dL (70-99) Calcium Level 8.2 mg/dL (8.5-10.1) Test 12/16/19 08:05 Glucose (Fingerstick) 145 mg/dL (70-99) Allergies Allergies Coded Allergies Type Severity Reaction Last Updated Verified codeine Allergy Intermediate 09/02/16 Yes Disposition/Orders: D/C to Home Justicifation of Admission Dx: Justifications for Admission: Justification of Admission Dx: Yes ELOY MADDEN MD Dec 16, 2019 10:20
[2019-12-16] MEDS ORDERED: INSU100V35 SQ (10:26)
[2019-12-16] MEDS ORDERED: ENOX100D3 SQ (10:26)
[2019-12-16] MEDS ORDERED: AMLO5TAB10 PO (10:26)
[2019-12-16] MEDS ORDERED: OLAN5TAB7 PO (10:26)
[2019-12-16] MEDS ORDERED: DOCU-153 PO (10:26)
[2019-12-16] MEDS ORDERED: DILT180C29 PO (10:26)
--- NOTE | 2019-12-16 10:27 | DISCH ---
DISCHARGE INSTRUCTIONS Condition on Discharge Condition on Discharge: Stable Activity After Discharge Activity Instructions for Disc: Activity as tolerated Driving Instructions after Dis: Do not drive Diet after Discharge Diet after Discharge: Regular Liquid Texture: Thin Liquid Checks after Discharge Checks after discharge: Check blood press - daily Contacting the [facility] after DC Call your doctor for: If your condition worsens Follow-Up Follow up with: see pcp in 2 days Treatment/Equipment after DC Adaptive Equipment Issued: None Warfarin Follow-Up Warfarin Follow UP: see pcp in 2 days ELOY MADDEN MD Dec 16, 2019 10:27
[2019-12-16 10:55] VITALS: BP 147/88
[2019-12-16] MEDS: TAMSULOSIN 0.4 MG CAP.ER.24H. PO SCH (13:24)
[2019-12-16] MEDS: DOCUSATE SODIUM 100 MG CAPSULE. PO SCH (13:25)
[2019-12-16] MEDS: amLODIPine BESYLATE 5 MG TABLET PO SCH (13:25)
[2019-12-16 14:08] LABS: PROTHROMBIN TIME PATIENT 19.2 SEC (11.7-14.0)
--- NOTE | 2019-12-16 14:16 | CARD ---
MR#: [id number] Date of Study: 12/16/2019 Ordering Physician: ELOY MADDEN, Referring Physician: ELOY MADDEN, Tech: Krista Mills RDCS APPROVED REPORT EXAM: Two-dimensional and M-mode echocardiogram with Doppler and color Doppler. Other Information Quality : Good INDICATION Supraventricular Tachycardia 2D DIMENSIONS RVDd3.3 (2.9-3.5cm)Left Atrium(2D)5.0 (1.6-4.0cm) IVSd1.0 (0.7-1.1cm)Aortic Root(2D)3.0 (2.0-3.7cm) LVDd4.9 (3.9-5.9cm)LVOT Diameter2.2 (1.8-2.4cm) PWd1.1 (0.7-1.1cm)LVDs3.0 (2.5-4.0cm) FS (%) 30.0 %SV80.1 ml Aortic Valve AoV Peak Marcel.132.5cm/sAoV VTI19.3cm AO Peak GR.7.0mmHgLVOT Peak Marcel.133.5cm/s AO Mean GR.4mmHgAVA (VMAX)3.95cm2 FEMI (VTI)4.70cm2 Mitral Valve MV E Smbligdm25.1cm/sMV DECEL COLS382fj MV A Smpjxcpb45.3cm/sE/A Ratio0.6 Pulmonary Vein S1 Mtalnlns19.2cm/sD2 Ojcsduhq75.8cm/s LEFT VENTRICLE The left ventricle is normal size. There is normal left ventricular wall thickness. The left ventricu lar systolic function is normal and the ejection fraction is within normal range. The Ejection Fracti on is 50-55%. There is normal LV segmental wall motion. Transmitral Doppler flow pattern is Grade I-a bnormal relaxation pattern. RIGHT VENTRICLE The right ventricle is normal size. The right ventricular systolic function is normal. ATRIA The left atrium is mildly dilated. The right atrium size is normal. The interatrial septum is intact with no evidence for an atrial septal defect or patent foramen ovale as noted on 2-D or Doppler imagi ng. AORTIC VALVE The aortic valve is calcified but opens well. Doppler and Color Flow revealed trace aortic regurgitat ion. There is no significant aortic valvular stenosis. MITRAL VALVE The mitral valve is calcified but opens well. There is no evidence of mitral valve prolapse. There is no mitral valve stenosis. Doppler and Color-flow revealed trace mitral regurgitation. TRICUSPID VALVE The tricuspid valve is normal in structure and function. Doppler and Color Flow revealed no tricuspid valve regurgitation noted. There is no tricuspid valve stenosis. PULMONIC VALVE The pulmonic valve is not well visualized. Doppler and Color Flow revealed no pulmonic valvular regur gitation. There is no pulmonic valvular stenosis. GREAT VESSELS The aortic root is normal in size. The ascending aorta is not well seen. The IVC is normal in size an d collapses >50% with inspiration. PERICARDIAL EFFUSION There is no evidence of significant pericardial effusion. Critical Notification Critical Value: No <Conclusion> The left ventricle is normal size. The left ventricular systolic function is normal and the ejection fraction is within normal range. The Ejection Fraction is 50-55%. Doppler and Color Flow revealed trace aortic regurgitation. There is no significant aortic valvular stenosis. Doppler and Color-flow revealed trace mitral regurgitation. Doppler and Color Flow revealed no tricuspid valve regurgitation noted. Signed by : Regino Donaldson MD Electronically Approved : 12/16/2019 14:16:26
[2019-12-16 14:40] VITALS: BP 143/87
== END 2019-12-16 16:10 | disposition home or self-care (01) | DRG 917 ==
LOC: 1 WEST ICU 20:26 → 5 NORTH 12-13 20:16
PROVIDERS: ADMIT Internal Medicine; ATTEND Internal Medicine
DX: T39.1X2A Poisoning by 4-Aminophenol derivatives, intentional self-harm, initial encounter (principal); E11.10 Type 2 diabetes mellitus with ketoacidosis without coma; I47.1 Supraventricular tachycardia; D68.52 Prothrombin gene mutation; D68.59 Other primary thrombophilia; F19.20 Other psychoactive substance dependence, uncomplicated; D72.829 Elevated white blood cell count, unspecified; E78.5 Hyperlipidemia, unspecified; F32.9 Major depressive disorder, single episode, unspecified; F41.1 Generalized anxiety disorder; G43.909 Migraine, unspecified, not intractable, without status migrainosus; I10 Essential (primary) hypertension; K57.90 Diverticulosis of intestine, part unspecified, without perforation or abscess without bleeding; N20.0 Calculus of kidney; N21.0 Calculus in bladder; N40.0 Benign prostatic hyperplasia without lower urinary tract symptoms; Z79.01 Long term (current) use of anticoagulants; Z79.899 Other long term (current) drug therapy; Z82.49 Family history of ischemic heart disease and other diseases of the circulatory system; Z86.711 Personal history of pulmonary embolism; Z87.442 Personal history of urinary calculi; M19.90 Unspecified osteoarthritis, unspecified site; F44.9 Dissociative and conversion disorder, unspecified; I49.9 Cardiac arrhythmia, unspecified
CPT/HCPCS: 36415; 80048; 80053; 81001; 82150; 82962; 83690; 84443; 85025; 85610; 93306; J1650; J1815; J2405; J3490; G0378